=== PATIENT | female | born 1995 | race Hispanic/Latino ===

== ENCOUNTER 2019-09-06 11:49 | Outpatient (CLI) | payer OTHER, SELFPAY ==
--- NOTE | ~2019-09-06 | US_ITS ---
US breast RT limited 09/06/2019 13:01 Indication: Right breast lump. Patient states the lump has expressed pus in the past. Procedure: High-resolution ultrasound of the right breast Comparison: No prior studies for comparison. Findings: In the area of palpable concern at 8:00, 5 cm from the nipple, there is an elliptical shape d complicated fluid collection with parallel orientation, peripheral vascularity with posterior acous tic enhancement measuring 1.6 x 1.2 x 0.4 cm. Impression: 1: Complicated superficially located fluid collection at 8:00, 5 cm from the nipple measuring 1.6 x 1 .2 x 0.4 cm which may represent a complicated sebaceous cyst or small abscess. Recommend appropriate therapy with follow-up ultrasound in 3 months to assess for resolution. BI-RADS CATEGORY 3-PROBABLY BENIGN FINDING Reviewed, dictated and finalized at location A. Impression: 1: Complicated superficially located fluid collection at 8:00, 5 cm from the ni pple measuring 1.6 x 1.2 x 0.4 cm which may represent a complicated sebaceous c yst or small abscess. Recommend appropriate therapy with follow-up ultrasound i n 3 months to assess for resolution. BI-RADS CATEGORY 3-PROBABLY BENIGN FINDING
== END 2019-09-06 11:50 | disposition home or self-care (01) ==
PROVIDERS: Visit Provider Surgery Plastic and Reconstructive Surgery
DX: N63.10 Unspecified lump in the right breast, unspecified quadrant (principal); R92.8 Other abnormal and inconclusive findings on diagnostic imaging of breast
CPT/HCPCS: 76642

== ENCOUNTER 2020-01-27 14:24 | Emergency (ER) | payer SELFPAY ==
[2020-01-27 14:28] VITALS: BP 149/83; PULSE 80; RESP 18; TEMP 36.2; O2SAT 99
--- NOTE | 2020-01-27 15:06 | ED.EAR ---
HPI - Ear Problem General Chief complaint: Ear Stated complaint: right ear pain Time Seen by Provider: 01/27/20 14:42 Source: patient Mode of arrival: ambulatory Limitations: no limitations History of Present Illness HPI Narrative: This is a 24 year old female that present to the ER for right ear pain x 1 week. Reports swelling and pain in the ear. Denies fever or drainage. Related Data Allergies Allergy/AdvReac Type Severity Reaction Status Date / Time No Known Allergies Allergy Verified 10/09/19 07:37 Review of Systems Review of Systems: Narrative: CONSTITUTIONAL: Denies fever ENT: Reports otalgia. All systems reviewed & are unremarkable except as noted in HPI and below PMFSH Past Medical History Medical History (Updated 01/27/20 @ 15:23 by Luna Royal PA-C) Ovarian torsion Skin abscess Surgical History Surgical History Hx of cholecystectomy Social History Social History Smoking status: Former smoker Gender identity (if verbalized by the patient): Female Exam Narrative: Exam Narrative: GENERAL: Well-appearing, well-nourished, and in no acute distress. HEAD: Normocephalic, atraumatic. EYES: EOMI. ENT: Nares clear, no rhinorrhea or epistaxis. Mucous membranes moist. Oropharynx without tonsillar hypertrophy exudate or other lesions. Bilateral TMs pearly luong non-bulging. Right external auditory canal with moderate edema and redness. No mastoid tenderness or swelling NECK: Supple. No adenopathy or masses. EXTREMITIES: Normal range of motion. No edema. SKIN: Warm, dry, no rash. NEURO: No focal deficits. Alert and oriented x3. PSYCH: Normal mood and affect Course Vital Signs Vital signs: Vital Signs Temperature 97.2 F L 01/27/20 14:28 Pulse Rate 80 01/27/20 14:28 Respiratory Rate 18 01/27/20 14:28 Blood Pressure 149/83 H 01/27/20 14:28 Pulse Oximetry 99 01/27/20 14:28 Temperature 97.2 F L 01/27/20 14:28 Pulse Rate 80 01/27/20 14:28 Respiratory Rate 18 01/27/20 14:28 Blood Pressure 149/83 H 01/27/20 14:28 Pulse Oximetry 99 01/27/20 14:28 Medical Decision Making MDM Narrative Medical decision making narrative: Patient presents the emergency department for right ear pain x1 week. Exam is consistent with otitis externa. She is afebrile and nontoxic-appearing. Given first dose of otic antibiotic in the ED. Will be started on antibiotics and is to follow-up with primary care doctor. She was given warnings to return to the ER Vital Signs Vital Signs: Vital Signs Temperature 97.2 F L 01/27/20 14:28 Pulse Rate 80 01/27/20 14:28 Respiratory Rate 18 01/27/20 14:28 Blood Pressure 149/83 H 01/27/20 14:28 Pulse Oximetry 99 01/27/20 14:28 Temperature 97.2 F L 01/27/20 14:28 Pulse Rate 80 01/27/20 14:28 Respiratory Rate 18 01/27/20 14:28 Blood Pressure 149/83 H 01/27/20 14:28 Pulse Oximetry 99 01/27/20 14:28 Critical Care Time Critical Care Time Critical Care Time: No Discharge Plan Discharge Clinical Impression: Otitis externa Qualifiers: Otitis externa type: diffuse Chronicity: acute Laterality: right Qualified Code(s): H60.311 - Diffuse otitis externa, right ear Patient Disposition: Home, Self-Care Condition: Stable Instructions: Antibiotic Form, Otitis Externa (ED) Additional Instructions: Return to the emergency department if you experience fever, increasing redness and swelling of your ear, or any other symptoms that are concerning to you Apply 3 drops into your right ear twice daily for the next 7 days Follow-up with primary care doctor Prescriptions: No Action hydrocodone-acetaminophen [Lamar] 5-325 mg tablet 1 tablet PO Q6H PRN (Reason: pain) Qty: 15 RF: 0 cephalexin [Keflex] 500 mg capsule 500 mg PO TID Qty: 21 RF: 0 Follow-up/Referrals: Gabino Leiva MD [y
[2020-01-27] MEDS: CIPROFLOXACIN HC OTIC 10 ML 3 DROP RIGHT EAR (15:08)
--- NOTE | 2020-01-27 15:08 | PC.NURSE ---
patient on stretcher. drops to right ear as ordered.
== END 2020-01-27 15:32 | disposition home or self-care (01) ==
PROVIDERS: Emergency Provider Emergency Medicine
DX: H60.311 Diffuse otitis externa, right ear (principal); Z87.891 Personal history of nicotine dependence
CPT/HCPCS: 99283; A9270

== ENCOUNTER 2020-06-11 18:38 | Emergency (ER) | payer SELFPAY ==
[2020-06-11 18:40] VITALS: BP 144/85; PULSE 86; RESP 16; TEMP 36.4; O2SAT 100
--- NOTE | 2020-06-11 19:17 | ED.ABDPAIN ---
HPI - Abdominal Pain General Chief Complaint: Abdominal Pain Stated Complaint: abd cramping, poss preg Time Seen by Provider: 06/11/20 19:12 Source: patient Mode of arrival: ambulatory Limitations: no limitations History of Present Illness HPI narrative: Patient is 24 years old female presents with lower abdominal cramps that started last night mainly on the left side with vaginal spotting. Last menstrual period April 11, 2020. Patient reports positive test 4 days ago. Patient denies any fever, chills, nausea, vomiting, urinary symptoms. Related Data Allergies Allergy/AdvReac Type Severity Reaction Status Date / Time No Known Allergies Allergy Verified 06/11/20 18:50 Review of Systems Review of Systems: Narrative: CONSTITUTIONAL: Denies fever, chills, or sweats. EYES: Denies visual changes, redness, or discharge. ENT: Denies rhinorrhea, congestion, sore throat, or otalgia. CARDIOVASCULAR: Denies chest pain, palpitations, or edema. RESPIRATORY: Denies cough or dyspnea. GASTROINTESTINAL: Denies abdominal pain, nausea, vomiting, or diarrhea. GENITOURINARY: Denies dysuria or hematuria. SKIN: Denies rash or itching. MUSCULOSKELETAL: Denies back pain, joint pain, or myalgia. NEUROLOGIC: Denies headache, numbness, or weakness. PSYCHIATRIC: Denies anxiety or depression. [facility] Past Medical History Medical History (Updated 06/11/20 @ 21:41 by Kaelyn Bradford MD) Ovarian torsion Skin abscess Surgical History Surgical History Hx of cholecystectomy Social History Social History Smoking status: Former smoker Gender identity (if verbalized by the patient): Female Exam Narrative: Exam Narrative: General appearance: Well-developed, well-nourished Skin: Normal color Head: Normocephalic, nontraumatic Eyes: Clear conjunctiva ENT: Oropharynx normal, ears normal, nose normal Neck: Supple, nontender Chest and respiratory: Airway patent, no respiratory distress, no accessory muscle use Heart: Regular rate/rhythm Abdomen: Soft, nontender, no organomegaly, quiet bowel sounds Vascular: Normal peripheral pulses, normal capillary refill. Musculoskeletal: Normal range of motion, nontender back Neurologic: Alert and oriented ?3, [employer] is normal as tested, no gross motor deficit Course Course Emergency Course: -year-old female stable Reevaluation(s) Reevaluation #1: Patient is feeling okay, denying any symptoms at this time, declined pelvic exam after negative test. Date: 06/11/20 Time: 21:41 Vital Signs Vital signs: Vital Signs Temperature 36.4 C L 06/11/20 18:40 Pulse Rate 86 06/11/20 18:40 Respiratory Rate 16 06/11/20 18:40 Blood Pressure 144/85 H 06/11/20 18:40 Pulse Oximetry 100 06/11/20 18:40 Temperature 36.4 C L 06/11/20 18:40 Pulse Rate 95 06/11/20 19:42 Respiratory Rate 16 06/11/20 19:42 Blood Pressure 148/90 H 06/11/20 19:42 Pulse Oximetry 98 06/11/20 19:42 MDM - Abdominal Pain MDM Narrative Medical decision making narrative: related symptoms versus anxiety/stress related symptoms. test ordered. Further plan to follow Differential Diagnosis Differential diagnosis: Likely abdominal pain, constipation and other ( related symptoms, miscarriage) Lab Data Result diagrams: 06/11/20 19:29 Labs: Lab Results 06/11/20 06/11/20 06/11/20 Range/Units 19:28 19:29 19:29 WBC 12.9 H (4.5-10.0) K/mm3 RBC 4.96 (4.2-5.4) M/mm3 Hgb 14.2 (12.0-15.0) g/dL Hct 43.8 (37.0-47.0) % MCV 88.3 (80-100) fl MCH 28.6 (26-34) p
[2020-06-11 19:37] LABS: Basophils Absolute Auto 0.1 K/mm3 (0.0-0.1); Basophils Percent Auto 0.5 % (0.2-1.2); Eosinophils Absolute Auto 0.2 K/mm3 (0-0.3); Eosinophils Percent Auto 1.7 % (0-4.4); Hematocrit 43.8 % (37.0-47.0); Hemoglobin 14.2 g/dL (12.0-15.0); Immature Granulocyte Absolute 0.06 K/mm3 (0.00-0.031); Immature Granulocyte Percent A 0.5 % (0-0.5); Lymphocytes Absolute Auto 3.32 K/mm3 (0.9-3.2); Lymphocytes Percent Auto 25.7 % (18.3-44.2); Mean Corpuscular HGB Conc 32.4 g/dl (32-36); Mean Corpuscular Hemoglobin 28.6 pg (26-34); Mean Corpuscular Volume 88.3 fl (80-100); Mean Platelet Volume 9.8 fl (7.4-10.4); Monocytes Percent Auto 7.4 % (2.6-8.5); Neutrophils Absolute Auto 8.3 K/mm3 (1.3-6.7); Neutrophils Percent Auto 64.2 % (45.5-73.1); Platelet Count Result 452 k/mm3 (150-375); Red Blood Count 4.96 M/mm3 (4.2-5.4); Red Cell Distribution Width 13.3 % (11.5-14.5); White Blood Count 12.9 K/mm3 (4.5-10.0)
[2020-06-11 19:40] VITALS: BP 142/82; PULSE 94
[2020-06-11 19:41] VITALS: BP 148/101; BP 148/90; PULSE 93; PULSE 95
[2020-06-11 19:42] VITALS: BP 148/90; PULSE 95; RESP 16; O2SAT 98
[2020-06-11 20:04] LABS: Beta HCG Quantitative < 2.39 mIU/ML
[2020-06-11 22:02] VITALS: BP 154/77; PULSE 88; RESP 20; O2SAT 100
== END 2020-06-11 22:02 | disposition home or self-care (01) ==
PROVIDERS: Physician Assistant; Emergency Provider Emergency Medicine
DX: N93.8 Other specified abnormal uterine and vaginal bleeding (principal); Z87.891 Personal history of nicotine dependence
CPT/HCPCS: 36415; 81025; 84702; 85025; 85461; 99284

== ENCOUNTER 2020-10-14 12:30 | Emergency (ER) | payer SELFPAY ==
--- NOTE | ~2020-10-14 | US_ITS ---
EXAMINATION: US soft tissue head and neck DATE: 10/14/2020 17:19 INDICATION: Left posterior neck mass. TECHNIQUE: Multiple grayscale and Doppler ultrasound images of the neck were obtained. COMPARISON: None FINDINGS: There is a 17 x 12 x 16 mm hypoechoic subcutaneous mass in the left posterior neck with tra ct to the skin. IMPRESSION: 1. 17 mm subcutaneous mass in left posterior neck, most likely a sebaceous cyst. Reviewed, dictated and finalized at location A. IMPRESSION: 1. 17 mm subcutaneous mass in left posterior neck, most likely a sebaceous cyst .
[2020-10-14 13:01] VITALS: BP 128/84; PULSE 77; RESP 20; TEMP 36.8; O2SAT 100
[2020-10-14 15:09] VITALS: BP 138/90; PULSE 67; RESP 20; TEMP 36.6; O2SAT 100
[2020-10-14] MEDS: ACETAMINOPHEN 500 MG TABLET 1000 MG PO (16:58)
--- NOTE | 2020-10-14 17:02 | ED.WOUNDLAC ---
HPI - Wound/Laceration General Chief Complaint: Wound/Laceration Stated Complaint: BOIL ON NECK Time Seen by Provider: 10/14/20 16:16 Source: patient Mode of arrival: ambulatory Limitations: no limitations History of Present Illness HPI narrative: This is a 25 year old female that presents to the ER for a cyst on her neck present over the last week. Reports the area is painful. Denies fever, cough, sore throat, erythema, or abnormal drainage. Related Data Home Medications Medication Instructions Recorded Confirmed No Home Medications 10/14/20 10/14/20 Allergies Allergy/AdvReac Type Severity Reaction Status Date / Time No Known Allergies Allergy Verified 10/14/20 15:09 Review of Systems Review of Systems: CONSTITUTIONAL: Denies fever ENT: Denies sore throat RESPIRATORY: Denies cough All systems reviewed & are unremarkable except as noted in HPI and below PMFSH Past Medical History Medical History (Updated 10/14/20 @ 17:41 by Luna Royal PA-C) Ovarian torsion Skin abscess Surgical History Surgical History Hx of cholecystectomy Social History Social History Smoking status: Former smoker Gender identity (if verbalized by the patient): Female Exam Narrative: GENERAL: Well-appearing, well-nourished, and in no acute distress. HEAD: Normocephalic, atraumatic. EYES: EOMI. ENT: Nares clear, no rhinorrhea or epistaxis. Mucous membranes moist. Oropharynx without tonsillar hypertrophy exudate or other lesions. NECK: Supple. Left posterior cervical lymph node vs cyst (2cm) that is mobile, tender to palpation in the area. No overlying erythema or warmth CHEST: Clear to auscultation. No respiratory distress. No wheezes rales or rhonchi HEART: Regular rate and rhythm. No murmur heard. Normal peripheral pulses. EXTREMITIES: Normal range of motion. No edema. SKIN: Warm, dry, no rash. NEURO: No focal deficits. Alert and oriented x3. PSYCH: Normal mood and affect Course Vital Signs Vital signs: Vital Signs Temperature 98.3 F 10/14/20 13:01 Pulse Rate 77 10/14/20 13:01 Respiratory Rate 20 10/14/20 13:01 Blood Pressure 128/84 10/14/20 13:01 Pulse Oximetry 100 10/14/20 13:01 Temperature 97.9 F 10/14/20 15:09 Pulse Rate 67 10/14/20 15:09 Respiratory Rate 20 10/14/20 15:09 Blood Pressure 138/90 10/14/20 15:09 Pulse Oximetry 100 10/14/20 15:09 MDM - Wound/Laceration MDM Narrative Medical decision making narrative: Patient presents to the emergency department for a cyst present on the back of the neck. There is no erythema or warmth to suggest infection. Patient is afebrile and nontoxic-appearing. We did perform ultrasound of the area which showed a 17 mm subcutaneous mass in the left posterior neck, most likely a sebaceous cyst. Patient was updated on case findings. She will be given plastics for follow-up. She was given warnings to return to the ER Imaging Data Radiologist's impression: ITS Impressions Head/Neck Ultrasound 10/14/20 17:20 IMPRESSION: 1. 17 mm subcutaneous mass in left posterior neck, most likely a sebaceous cyst. Critical Care Time Critical Care Time Critical Care Time: No Discharge Plan Discharge Clinical Impression: Epidermal inclusion cyst Patient Disposition: Home, Self-Care Condition: Stable Instructions: Epidermal Inclusion Cysts (ED) Additional Instructions: Return to the emergency department if you experience fever, redness and swelling of your cyst, abnormal drainage from the area, or any other symptoms that are concerning to you Tylenol or ibuprofen as needed for discomfort Follow-up with plastic surgery Prescriptions: No Action No Home Medications RF: 0 Follow-up/Referrals: Andry Wilson MD [Physician] - Antoine Tate MD [Physician] - PHYSICIAN,[employer] [Primary C
[2020-10-14 17:55] VITALS: BP 128/76; PULSE 70; RESP 18; O2SAT 100
== END 2020-10-14 17:55 | disposition home or self-care (01) ==
PROVIDERS: Emergency Provider Emergency Medicine
DX: L72.0 Epidermal cyst (principal); Z87.891 Personal history of nicotine dependence
CPT/HCPCS: 76536; 99284; A9270

== ENCOUNTER 2020-11-13 09:00 | Emergency (ER) | payer SELFPAY ==
[2020-11-13 09:05] VITALS: BP 131/97; PULSE 77; RESP 14; TEMP 36.6; O2SAT 98
[2020-11-13 09:08] VITALS: BP 131/91; PULSE 77; RESP 14; TEMP 36.6; O2SAT 98
--- NOTE | 2020-11-13 09:17 | ED.SKABFB ---
HPI - Skin/Abscess/Foreign Bdy General Chief complaint: Skin/Abscess/Foreign Body Stated complaint: boil on neck Time Seen by Provider: 11/13/20 09:08 Source: patient Mode of arrival: ambulatory Limitations: no limitations History of Present Illness HPI narrative: This is a 25-year-old female that presents to the emergency department for cyst on her neck. I actually evaluated her for this about a month ago. Had an ultrasound that showed an epidermal inclusion cyst. I gave her follow-up with plastics, which she has not done yet. Now recently the cyst has become a little more painful. There is some redness to the area. She is also getting some drainage from the area. Denies fevers. Related Data Allergies Allergy/AdvReac Type Severity Reaction Status Date / Time No Known Allergies Allergy Verified 10/14/20 15:09 Review of Systems Review of Systems: CONSTITUTIONAL: Denies fever SKIN: Reports cyst All systems reviewed & are unremarkable except as noted in HPI and below PMFSH Past Medical History Medical History (Updated 11/13/20 @ 11:24 by Luna Royal PA-C) Ovarian torsion Skin abscess Surgical History Surgical History Hx of cholecystectomy Social History Social History Smoking status: Former smoker Gender identity (if verbalized by the patient): Female Exam Narrative: GENERAL: Well-appearing, well-nourished, and in no acute distress. HEAD: Normocephalic, atraumatic. EYES: EOMI. NECK: Supple. Left posterior neck with 4cm soft cystic area. CHEST: No respiratory distress. HEART: Regular rate EXTREMITIES: Normal range of motion. No edema. SKIN: Warm, dry, no rash. NEURO: No focal deficits. Alert and oriented x3. PSYCH: Normal mood and affect Course Vital Signs Vital signs: Vital Signs Temperature 97.9 F 11/13/20 09:05 Pulse Rate 77 11/13/20 09:05 Respiratory Rate 14 11/13/20 09:05 Blood Pressure 131/97 H 11/13/20 09:05 Pulse Oximetry 98 11/13/20 09:05 Temperature 97.9 F 11/13/20 09:08 Pulse Rate 77 11/13/20 09:08 Respiratory Rate 14 11/13/20 09:08 Blood Pressure 131/91 H 11/13/20 09:08 Pulse Oximetry 98 11/13/20 09:08 MDM - Skin/Abscess/Foreign Bdy MDM Narrative Medical decision making narrative: Patient presents to the emergency department for a cyst on the back of her neck. I did evaluate patient for this 1 month ago. Her ultrasound of the area that shows a sebaceous cyst. Patient was instructed to follow-up with plastics for removal of this. She did not follow-up with plastics and now the cyst has become a little bit larger and painful. There is very mild redness of the area. It does not overtly appear infected at this time. I do not feel as though it needs incision and drainage today. I will start her on antibiotic until she is able to get into see plastic surgery for removal. She was given warnings to return to the ER Critical Care Time Critical Care Time Critical Care Time: No Discharge Plan Discharge Clinical Impression: Epidermal inclusion cyst Patient Disposition: Home, Self-Care Condition: Stable Instructions: Antibiotic Form, Cyst (ED) Additional Instructions: Return if symptoms worsen or concerns: any increase in redness, swelling, pain, or fever over 101 Take antibiotics as directed. Warm compresses 3 times a day for 30 minutes each Follow up with plastic surgery. Call today to make an appointment Prescriptions: New cephalexin 500 mg capsule 500 mg PO Q6H 7 Days Qty: 28 RF: 0 Follow-up/Referrals: Andry Wilson MD [Physician] - 2 Days Antoine Tate MD [Physician] - 2 Days PHYSICIAN,CNA CAREGIVER [Primary Care Provider] -
[2020-11-13 11:53] VITALS: BP 124/79; PULSE 59; RESP 18; O2SAT 100
== END 2020-11-13 11:55 | disposition home or self-care (01) ==
PROVIDERS: Emergency Provider Emergency Medicine
DX: L72.0 Epidermal cyst (principal); Z87.891 Personal history of nicotine dependence
CPT/HCPCS: 99283

== ENCOUNTER 2022-07-27 15:20 | Emergency (ER) | payer SELFPAY ==
[2022-07-27 15:22] VITALS: BP 148/91; PULSE 82; RESP 13; TEMP 36.6; O2SAT 100
--- NOTE | 2022-07-27 16:14 | ED.GENADULT ---
HPI - General Adult General Chief complaint: Eye Problems Stated complaint: eye/neck Time Seen by Provider: 07/27/22 15:57 History of Present Illness HPI narrative: Patient is a 26-year-old female who presents ER with 2 complaints. First complaint is a firm nodule to her right upper eyelid. Is been present for several weeks. It waxes and wanes in its size. There is been no drainage. She has tried warm compresses and topical medication without improvement. Reports sometimes it is swollen in the morning obstructs her vision but has no issues at this time. Patient has history of cyst formation in her axillae, groin, and neck chronically. Patient also reports that she has had some increase in size of the cyst to the posterior aspect of her neck. There is been no drainage there. She has not seen a surgeon for possible removal. She does not have a PCP. She is on no immunologic therapy. Related Data Allergies Allergy/AdvReac Type Severity Reaction Status Date / Time No Known Allergies Allergy Verified 10/14/20 15:09 Review of Systems Constitutional: Constitutional: Denies chills and Denies fever(s) Eyes: Eyes: Denies change in vision and Denies photophobia Comments: Swelling right upper eyelid. Integumentary/Breasts: Skin/Breast: Denies pruritus, Denies erythema and Denies rash Comments: Tender cyst. [facility] Past Medical History Medical History (Updated 07/27/22 @ 16:27 by Edilberto Petit MD) Hidradenitis Ovarian torsion Skin abscess Surgical History Surgical History Hx of cholecystectomy Social History Social History Smoking status: Former smoker Gender identity (if verbalized by the patient): Female Exam Narrative: GENERAL: Well-appearing, well-nourished, and in no acute distress. HEAD: Normocephalic, atraumatic. EYES: PERRL and EOMI. firm nodular cyst right upper eyelid, no involvement with the hair follicles and eyelid eversion does not show any site of possible drainage. ENT: Mucous membranes moist. NECK: Supple. Firm cyst to the neck bilaterally posteriorly, no erythema, no fluctuance or areas of drainage. Scars noted from previous incision and drainage. HEART: Regular rate and rhythm. Normal peripheral pulses. EXTREMITIES: Normal range of motion. No edema. NEURO: Alert and oriented x3. PSYCH: Normal mood and affect. Course Course Emergency Course: Patient resting comfortably. Discussed that patient says should be seen by ophthalmology may need ophthalmologic plastic surgery to remove it. Also discussed she should see general surgery in relation to her chronic cyst on her neck. None of them are erythematous or indurated. We will treat with oral antibiotics and anti-inflammatories. Vital Signs Vital signs: Vital Signs Temperature 97.8 F 07/27/22 15:22 Pulse Rate 82 07/27/22 15:22 Respiratory Rate 13 07/27/22 15:22 Blood Pressure 148/91 H 07/27/22 15:22 Pulse Oximetry 100 07/27/22 15:22 Oxygen Delivery Room Air 07/27/22 15:22 Temperature 97.8 F 07/27/22 15:22 Pulse Rate 82 07/27/22 15:22 Respiratory Rate 13 07/27/22 15:22 Blood Pressure 148/91 H 07/27/22 15:22 Pulse Oximetry 100 07/27/22 15:22 Oxygen Delivery Room Air 07/27/22 15:22 Medical Decision Making Vital Signs Vital Signs: Vital Signs Temperature 97.8 F 07/27/22 15:22 Pulse Rate 82 07/27/22 15:22 Respiratory Rate 13 07/27/22 15:22 Blood Pressure 148/91 H 07/27/22 15:22 Pulse Oximetry 100 07/27/22 15:22 Oxygen Delivery Room Air 07/27/22 15:22 Temperature 97.8 F 07/27/22 15:22 Pulse Rate 82 07/27/22 15:22 Respiratory Rate 13 07/27/22 15:22 Blood Pressure 148/91 H 07/27/22 15:22 Pulse Oximetry 100 07/27/22 15:22 Oxygen Delivery Room Air 07/27/22 15:22 Discharge Plan Discharge Clinical Impression: Cyst o
== END 2022-07-27 16:36 | disposition home or self-care (01) ==
PROVIDERS: Emergency Provider Emergency Medicine; PCP Emergency Medicine
DX: H02.821 Cysts of right upper eyelid (principal); L73.2 Hidradenitis suppurativa; Z87.891 Personal history of nicotine dependence
CPT/HCPCS: 99283

== ENCOUNTER 2024-06-07 07:34 | Emergency (ER) | payer OTHER, SELFPAY ==
--- OUTSIDE RECORDS SUMMARY | 2024-06-07 07:36 | XMS_ITS | Clinical Summary ---
Author Organization [facility] Address [address] [place] [id number] Care Team Providers Care Instructional Design Technologist Name Role Phone Unavailable Primary Care Provider Unavailabl e Social History Tobacco Use Types Packs/Day Years Used Date Smoking Tobacco: Never Assessed Comments Unknown Sex and Gender Information Value Date Recorded Sex Assigned at Not on file Legal Sex Female 8:10 AM CDT Gender Identity Not on file Sexual Orientation Not on file Plan of Treatment Upcoming Encounters Date Type Department Care Team (Late st Contact Info) Description 06/23/2024 1:00 PM CDT Appointment [facility] Ultrasound [address] [place] [address] Diana Pack, [facility] [address] [id number] Health Maintenance Due Date Last Done Comments Cervical Cancer Screening Pa p Smear (Age 21 to 29) Every 3 Years 1996 Cervical Cancer Screening 1996 Annual Physical 09/10/1999 Hepatitis C 2014 DTaP, Tdap and Td Vaccines ( 1 - Tdap) 09/10/2015 Hepatitis B Vaccines (1 of 3 - 19+ 3-dose series) 09/10/2015 COVID-19 Vaccine (2023-2 5 season) 2023 HPV Vaccines Aged Out No longer eligi ble based on patient's age to complete this topic Meningococcal B Vaccine Aged Out No l onger eligible based on patient's age to complete this topic Meningococcal Vaccine Aged Out No halley radha eligible based on patient's age to complete this topic Pneumococcal Vaccine: Pediat rics (0 to 5 Years) and At-Risk Patients (6 to 49 Years) Aged Out No longer eligible b ased on patient's age to complete this topic RSV Immunizations Under 20 Months Aged Out No longer eligible based on patient's age to complete this topic Insurance [facility]
[2024-06-07 07:37] VITALS: BP 140/88; PULSE 62; RESP 16; TEMP 36.8; O2SAT 99
--- OUTSIDE RECORDS SUMMARY | 2024-06-07 07:37 | XMS_ITS | Clinical Summary ---
Author Organization [facility] [employer] Address [address] [place] [address] Care Team Providers Care Modeling Agency Manager Name Role Phone Micah Sandhu MD Primary Care Provider [phone] Source Comments [facility],non-owned Affiliates and Associated Physician Practices is amultiple site organization consisting of ambulatory clinics and hospital sitesin [place], [place], [place] and [place]. This disclosure is being madepursuant to the Care Everywhere program and may not contain all information available regarding this patient. Last updated 17.[facility] [employer] Allergies No known active allergies Medications * This document contains information received from the source organization and may not represent a complete record from that organization. * Be aware that medications may not be up to date on this document. Alwaysverify current medications with the patient. desogestrel-eth inyl estradiol (ORTHO-CEPT, 28,) 0.15-30 MG-MCG tabletIndicatio ns:Polycystic Ovary Syndrome Take 1 Tab by mouth once daily Reasons: Polycystic Ovary Syndrome 1 Packet 5 6 Active Cholecalciferol 12686 UNITSIndication s:Hypovitaminos is D Take by mouth every 7 days 4 Cap 2 6 Active ibuprofen (MOTRIN) 600 MG tablet Take 1 Tab by mouth every 6 hours as needed for Pain 20 Tab 0 6 Active clindamycin (CLEOCIN) 1 % gel Apply to affected area 2 times daily 75 mL 1 6 Active Active Problems Patient Care Coordination No te Formatting of this note migh t be different from the original. Patient's Cell #: [phone] Problem Noted Date Diagnosed Date Abdominal pain, generalized 10/02/2014 S/P cholecystectomy 09/30/2014 Cholecystitis 09/28/2014 Hirsutism 05/01/2014 PCOS (polycystic ovarian syndrome) 10/03/2013 Routine screening for STI (sexually transmitted infection) 10/02/2013 Resolved Problems Problem Noted Date Diagnosed Date Resolved Date Menses, irregular 04/03/2013 05/01/2014 Family History Medical History Relation Name Comments Hypercholesterolemia Maternal Grandfather Hypertension Maternal Grandfather Diabetes Maternal Grandmother Relation Name Status Comments Maternal Grandfather Maternal Grandmother Social History Tobacco Use Types Packs/Day Years Used Date Smoking Tobacco: Never Smokeless Tobacco: Never Alcohol Use Standard Drinks/Week Comments No 0 (1 standard drink = 0.6 oz pur e alcohol) Comments No Sex and Gender Information Value Date Recorded Sex Assigned at Not on file Legal Sex Female 9:03 AM [employer] Gender Identity Not on file Sexual Orientation Not on file Last Filed Vital Signs Vital Sign Reading Time Taken Comments Blood Pressure 108/69 05/19/2015 11:50 PM CDT Pulse 80 05/19/2015 11:50 PM CDT Temperature 36.8 C (98.2 F) 05/19/2015 11:50 PM CDT Respiratory Rate 20 05/19/2015 11:50 PM CDT Oxygen Saturation 97% 10/02/2014 1:12 AM CDT Inhaled Oxygen Concentration 100% 09/28/2014 4 :10 PM CDT Weight 80.1 kg (176 lb 9.4 oz) 05/19/2015 9:59 P M CDT Height 162.6 cm (5' 4.02 ) 05/07/2015 1:20 PM CD T Body Mass Index 30.3 05/07/2015 1:20 PM CDT Plan of Treatment Health Maintenance Due Date Last Done Comments PAP SMEAR 1996 HIV SCREENING 09/10/2011 HEPATITIS C SCREENING 09/05/2014 DTAP/TDAP/TD VACCINES (1 - Tdap) 09/10/2015 HEPATITIS B VACCINE (1 of 3 - 19+ 3-dose series) 09/10/2015 COVID-19 VACCINE (2023-2 5 season) 2023 DEPRESSION SCREENING 02/16/2024 INFLUENZA VACCINE (Season Ended) 2024 ZOSTER VACCINE (1 of 2) 2046 HIB VACCINE Aged Out No longer eligi ble based on patient's age to complete this topic HPV VACCINE Aged Out No longer eligi ble based on patient's age to complete this topic MENINGOCOCCAL (Group B) VACC INE SHARED DECISION-MAKING Aged Out No longer eligibl e based on patient's age to complete this topic MENINGOCOCCAL GROUPS A/C/Y/W VACCINE Aged Out No longer eligible b ased on patient's age to complete this topic PNEUMOCOCCAL VACCINE Aged Out No long er eligible based on patient's age to complete this topic Advance Directives * Full Code (Latest Code Status on File) Date Activated Date Inactivated Comments 10/02/2014 4:41 AM 10/02/2014 1:16 PM * Full Code Date Activated Date Inactivated Comments 09/28/2014 5:40 PM 09/30/2014 5:44 PM * Full Code Date Activated Date Inactivated Comments 09/27/2014 3:55 PM 09/28/2014 5:40 PM Care Teams Modeling Agency Manager Relationship Specialty Start Date End Date Micah Sandhu MD [address] [place] [address] [address] [place] [address] PCP - General Family Medicine 02/22/13
--- OUTSIDE RECORDS SUMMARY | 2024-06-07 07:37 | XMS_ITS | Data Portability ---
Author Organization NOREEN MERRITTJeanette Mccauley Address [address] [place] [address] Assessment No assessment recorded. Plan of Treatment Reminders Order Date Submit Date Provider Last Modified By Organization Details Last Modified Time Details Appointments ANY 15 2024 09:30A M DIANA PACK NP Not available Not available Not available NEW PATIE NT 60 2024 02:00P M YADIRA MCCRAY LCSW Not available Not available Not available NEW PATIE NT 30 2024 10:00A M Eros Brooke MD Not available Not available Not available NEW PATIE NT 30 2024 01:00P M Juliano Hanson MD Not available Not available Not available Lab TSH, ultra -sens itive , serum 2024 025 [facility], [address] [facility] [address], [address], [place], [address], 05/30/2024 03:38:32 CBC w/ auto diff 2024 025 [facility], [address], [address], [place], [address], 05/30/2024 03:38:34 RPR (rapi d plasm a reagi n), serum 2024 025 [facility], [address], [address], [place], [address], 05/30/2024 03:38:35 HIV 1 + 2, meani ngful use set 2024 025 [facility], [address] [facility] [address], [address], [place], [address], 05/30/2024 03:38:37 vagin al patho gens panel , RUDY+p robe, vagin al fluid 2024 025 [facility], [address] [facility] [address], [address], [place], [address], 05/27/2024 10:24:54 hepat itis panel (A+B+ C), acute , serum 2024 025 [facility], [address] [facility] [address], [address], [place], [address], 05/30/2024 03:38:27 HCG, intac t + beta subun it, quant , serum or plasm a 2024 025 [facility], [address] [facility] [address], [address], [place], [address], 05/30/2024 03:38:32 estra diol, serum 2024 025 [facility], [address], [address], [place], [address], 05/30/2024 03:38:33 lh + FSH, serum 2024 025 [facility], [address] [facility] [address], [address], [place], [address], 05/30/2024 03:38:36 testo stero ne, free + total , serum 2024 025 [facility], [address] [facility] [address], [address], [place], [address], 05/30/2024 03:38:25 iron + total iron- denzel ng capac ity (TIBC ), serum 2024 025 [facility], [address] [facility] [address], [address], [place], [address], 05/30/2024 03:38:29 HbA1c (hemo globi n A1c), blood 2024 025 [facility], [address] [facility] [address], [address], [place], [address], 05/30/2024 03:38:31 urina lysis compl ete, refle x cultu re 2024 025 [facility], [address] [place] [address], [address], [place], [address], 05/30/2024 03:38:28 CT + NG + TV, DNA, urine /swab 2018 019 [facility], [address] [place] [address], [address], [place], [address], 03/18/2018 07:16:51 lh + FSH, serum 2018 019 [facility] (Centralized Electronic Ordering - All Locations), Patient Can Go To The Location Of Their Choice, 03/18/2018 07:16:51 dhea- sulfa te, serum 2018 019 [facility] (Centralized [facility] Ordering - All Locations), Patient Can Go To The Location Of Their Choice, 03/18/2018 07:16:53 testo stero ne, total , serum 2018 019 [facility] (Centralized [facility] Ordering - All Locations), Patient Can Go To The Location Of Their Choice, 03/18/2018 07:16:53 HbA1c (hemo globi n A1c), blood 2018 019 [facility], [address], [address], [place], [address], 03/18/2018 07:16:52 CMP, serum or plasm a 2018 019 [facility] (Centralized Electronic Ordering - All Locations), Patient Can Go To The Location Of Their Choice, [id number] 03/18/2018 07:16:50 lipid panel , serum 2018 019 [facility] (Centralized Electronic Ordering - All Locations), Patient Can Go To The Location Of Their Choice, [id number] 03/18/2018 07:16:50 TSH, ultra -sens itive , serum 2018 019 [facility], [address] [facility], [facility] [address], [place], [address], 03/18/2018 07:16:54 pregn cinthia test, urine 2018 019 tia In-Office Order, Internal Use Only DO Not Attach Compendium DO Not Attach Compendium, Do Not Delete/merge, [id number] 03/16/2018 16:02:37 urina lysis , dipst ick 2018 019 [facility] In-Office Order, Internal Use Only DO Not Attach Compendium DO Not Attach Compendium, Do Not Delete/merge, [id number] 03/16/2018 16:02:37 proge stero ne, serum - Day 21 proge stero ne next menst rual cycle 2018 019 [facility], [address], [address], [place], [address], 03/16/2018 16:45:10 semen heather sis 2018 019 [facility], [address], [address], [place], [address], 03/16/2018 15:48:[address] refer ral 2024 025 zoila Brooke MD, [address], [address], [place], [address], 05/26/2024 14:43:37 alistair ic couns elor refer ral 2024 025 [facility], [address] [facility] [address], [place], [address], 05/30/2024 10:25:18 derma tolog ist refer ral 2024 025 [facility] Stacia Adams MD (Dermatology) , [address] [facility] , [facility] [place], [address], 05/25/2024 11:15:24 plast ic surge on refer ral - Pleas e call patie nt to sched ule appt. Thank you 2017 018 ginaelsonjeffy Not available 03/16/2018 15:12:04 Procedures None recor ded. Surgeries None recor ded. Imaging US, neck, soft tissu e 2024 025 [facility] Centralized Scheduling, Centralized Scheduling, [address] [facility] , [place], [address], 05/26/2024 11:45:22 US, pelvi s, trans abdom inal + trans vagin al [address] [facility] Scheduling, [address], [place], [address], 05/30/2024 16:20:31 XR, hyste alpesh shreyago gram 2018 019 [facility] [[email or web address] (One Call Scheduling), [address] [place], [address], 07/04/2018 16:49:16 Medication Orders escit alopr am 10 mg table t 2024 025 [facility], [address] [place] [address], [address], 05/25/2024 10:46:58 Bactr im DS 800 mg-16 0 mg table t 2024 025 [facility], [address] [place] [address], [id number], 05/25/2024 10:46:59 Annov era 0.15 mg-0. 013 mg/24 hr vagin al ring 2019 [facility], [address], [id number], 05/25/2024 09:56:20 multi vitam in table t 2019 020 [facility], [address] [place] [address], [id number], 05/25/2024 09:56:27 Calci um with Vitam in D 600 mg-10 mcg (400 unit) table t 2019 020 [facility] [address], [address] [place] [address], [id number], 05/25/2024 09:56:23 metfo rmin 1,000 mg table t 2018 019 [facility] [address], [address] [place] [address], [address], 10/26/2019 16:29:48 letro zole 2.5 mg table t 2018 019 [facility] [address], [address] [place] [address], [id number], 10/26/2019 16:29:45 calci um 600 mg (as carbo [place]) -kyra min D3 20 mcg (800 unit) table t 2018 019 [facility] [address], [address] [place] [address], [id number], 10/26/2019 16:29:40 multi vitam in table t 2018 019 [facility], [address] [place], [address], 05/25/2024 09:56:27 Patient TargetsNo targets recorded. Patient Instructions Encounter Date Encounter Id Patient Instructions Last Modified By Organization Details Last Modified Time 05/25/2024 [id number] A healthy lifestyle: care instructions [email or web address] Not available 05/25/2024 10:46:52 Reason for Referral Plastic Surgeon Referral for Furunculosis of skin AND/OR subcutaneous tissue Please call patient to schedule appt. Thank you Referring Physician: Candy Oneal [facility], Encounter Date: 01/05/2018 Psychiatrist Referral for De pression screening Referring Physician: Diana Pack [facility], Encounter Date: 05/25/2024 Concrete Gun Operator Referral for M ass of skin Referring Physician: Diana Pack [facility], Encounter Date: 05/25/2024 Genetic Counselor Referral f or Family history of breast cancer Referring Physician: Diana Pack [facility], Encounter Date: 05/25/2024 Results Created Date Observation Date Name Description Value Unit Range Abnormal Flag Note LastModifiedBy Organization Detail LastModifiedTime 03/16/1903/16/2018 urina lysis , dipst ick Leukocytes Negati ve Not Available In-Office Order Internal Use Only DO Not Attach Compendium DO Not Attach Compendium, Do Not Delete/merge, [id number] 03/16/2018 15:23:03/16/1903/16/2018 urina lysis , dipst ick Nitrite negati ve Not Available In-Office Order Internal Use Only DO Not Attach Compendium DO Not Attach Compendium, Do Not Delete/merge, [id number] 03/16/2018 15:23:01 03/16/1903/16/2018 urina lysis , dipst ick Urobilinogen .2 Not Available In-Of fice Order Internal Use Only DO Not Attach Compendium DO Not Attach Compendium, Do Not Delete/merge, [id number] 03/16/2018 15:23:03/16/1903/16/2018 urina lysis , dipst ick Protein Negati ve Not Available In-Office Order Internal Use Only DO Not Attach Compendium DO Not Attach Compendium, Do Not Delete/merge, [id number] 03/16/2018 15:23:03/16/1903/16/2018 urina lysis , dipst ick pH 7.0 Not Available In-Office Order Internal Use Only DO Not Attach Compendium DO Not Attach Compendium, Do Not Delete/merge, [id number] 03/16/2018 15:23:03/16/1903/16/2018 urina lysis , dipst ick Blood Negati ve Not Available In-Office Order Internal Use Only DO Not Attach Compendium DO Not Attach Compendium, Do Not Delete/merge, 03/16/2018 15:23:03/16/1903/16/2018 urina lysis , dipst ick Specific Tyner 1.020 Not Available In-Off ice Order Internal Use Only DO Not Attach Compendium DO Not Attach Compendium, Do Not Delete/merge, 03/16/2018 15:23:03/16/1903/16/2018 urina lysis , dipst ick Ketone Negati ve Not Available In-Office Order Internal Use Only DO Not Attach Compendium DO Not Attach Compendium, Do Not Delete/merge, [id number] 03/16/2018 15:23:01 03/16/1903/16/2018 urina lysis , dipst ick Bilirubin Negati ve Not Available In-Office Order Internal Use Only DO Not Attach Compendium DO Not Attach Compendium, Do Not Delete/merge, [id number] 03/16/2018 15:23:03/16/1903/16/2018 urina lysis , dipst ick Glucose Negati ve Not Available In-Office Order Internal Use Only DO Not Attach Compendium DO Not Attach Compendium, Do Not Delete/merge, [id number] 03/16/2018 15:23:01 03/16/1903/16/2018 pregn cinthia test, urine HCG negati ve Not Available In-Office Order Internal Use Only DO Not Attach Compendium DO Not Attach Compendium, Do Not Delete/merge, [id number] 03/16/2018 15:19:39 03/16/1903/17/2018 CMP, serum or plasm a glucose 88 mg/dL 65-99 Not Available [facility] ([facility]) [address] [place], [address], 03/18/2018 07:16:50 03/16/1903/17/2018 CMP, serum or plasm a BUN 8 mg/dL 6-20 Not Available [facility] ([facility]) [address] [place], [address], 03/18/2018 07:16:50 03/16/1903/17/2018 CMP, serum or plasm a creatinine 0.53 mg/dL 0.57-1 .00 below low normal Not Available [facility] ([facility]) [address] [place], [address], 03/18/2018 07:16:50 03/16/1903/17/2018 CMP, serum or plasm a eGFR if nonafricn AM 136 mL/mi n/1.7 3 >59 Not Available [facility] ([facility]) [address] [place], [address], 03/18/2018 07:16:50 03/16/1903/17/2018 CMP, serum or plasm a eGFR if africn AM 157 mL/mi n/1.7 3 >59 Not Available [facility] ([facility]) [address] [place], [address], 03/18/2018 07:16:50 03/16/1903/17/2018 CMP, serum or plasm a BUN/creatini ne ratio 15 9-23 Not Available [facility] ([facility]) [address] [place], [address], 03/18/2018 07:16:50 03/16/1903/17/2018 CMP, serum or plasm a sodium 139 mmol/ L 134-14 4 Not Available [facility] ([facility]) [address] [facility], [address], 03/18/2018 07:16:50 03/16/1903/17/2018 CMP, serum or plasm a potassium 4.5 mmol/ L 3.5-5. 2 Not Available [facility] ([facility]) [address] [facility], [address], 03/18/2018 07:16:50 03/16/1903/17/2018 CMP, serum or plasm a chloride 100 mmol/ L 96-106 Not Available [facility] ([facility]) [address] [facility], [address], 03/18/2018 07:16:50 03/16/1903/17/2018 CMP, serum or plasm a carbon dioxide, total 26 mmol/ L 20-29 Not Available [facility] ([facility]) [address] [facility], [address], 03/18/2018 07:16:50 03/16/1903/17/2018 CMP, serum or plasm a calcium 9.5 mg/dL 8.7-10 .2 Not Available [facility] ([facility]) [address] [facility], [address], 03/18/2018 07:16:50 03/16/1903/17/2018 CMP, serum or plasm a protein, total 7.3 g/dL 6.0-8. 5 Not Available [facility] ([facility]) [address] [facility], [address], 03/18/2018 07:16:50 03/16/1903/17/2018 CMP, serum or plasm a albumin 4.8 g/dL 3.5-5. 5 Not Available [facility] ([facility]) [address] [facility], [address], 03/18/2018 07:16:50 03/16/19 19 03/17/2018 CMP, serum or plasm a globulin, total 2.5 g/dL 1.5-4. 5 Not Available [facility] ([facility]) [address] [facility], [address], 03/18/2018 07:16:50 03/16/1903/17/2018 CMP, serum or plasm a A/G ratio 1.9 1.2-2. 2 Not Available [facility] ([facility]) [address] [facility], [address], 03/18/2018 07:16:50 03/16/1903/17/2018 CMP, serum or plasm a bilirubin, total 0.5 mg/dL 0.0-1. 2 Not Available [facility] ([facility]) [address] [facility], [address], 03/18/2018 07:16:50 03/16/1903/17/2018 CMP, serum or plasm a alkaline phosphatase 70 IU/L 39-117 Not Available [facility]) [address] [facility], [address], 03/18/2018 07:16:50 03/16/1903/17/2018 CMP, serum or plasm a AST (SGOT) 30 IU/L 0-40 Not Available [facility] ([facility]) [address] [facility], [address], 03/18/2018 07:16:50 03/16/1903/17/2018 CMP, serum or plasm a ALT (SGPT) 64 IU/L 0-32 above high normal Not Available [facility] ([facility]) [address] [facility], [address], 03/18/2018 07:16:50 03/16/1903/17/2018 lipid panel , serum cholesterol, total 177 mg/dL 100-19 9 Not Available [facility] ([facility]) [address], [place], [address], 03/18/2018 07:16:50 03/16/1903/17/2018 lipid panel , serum triglyceride s 93 mg/dL 0-149 Not Available [facility] ([facility]) [address], [place], [address], 03/18/2018 07:16:50 03/16/1903/17/2018 lipid panel , serum HDL cholesterol 43 mg/dL >39 Not Available [facility] ([facility]) [address] [place], [address], 03/18/2018 07:16:50 03/16/1903/17/2018 lipid panel , serum VLDL cholesterol jaylyn 19 mg/dL 5-40 Not Available [facility] ([facility]) [address] [facility], [place], [address], 03/18/2018 07:16:50 03/16/1903/17/2018 lipid panel , serum LDL cholesterol calc 115 mg/dL 0-99 above high normal Not Available [facility] ([facility]) [address] [place], [address], 03/18/2018 07:16:50 03/16/1903/17/2018 lipid panel , serum comment: 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 2 LDL/H DL Ratio Men Women 1/2 Avg.R isk 1.0 1.5 Avg.R isk 3.6 3.2 2X Avg.R isk 6.2 5.0 3X Avg.R isk 8.0 6.1 Not Available [facility] ([facility]) [address], [place], [address], 03/18/2018 07:16:50 03/16/1903/18/2018 CT + NG + TV, DNA, urine /swab chlamydia by RUDY NEGATI VE negati ve Not Available [facility] ([facility]) [address] [place], [address], 03/18/2018 07:16:51 03/16/1903/18/2018 CT + NG + TV, DNA, urine /swab gonococcus by RUDY NEGATI VE negati ve Not Available [facility] ([facility]) [address] [place], [address], 03/18/2018 07:16:51 03/16/1903/18/2018 CT + NG + TV, DNA, urine /swab trich vag by RUDY NEGATI VE negati ve Not Available [facility] ([facility]) [address] [place], [address], 03/18/2018 07:16:51 03/16/1903/17/2018 lh + FSH, serum LH 15.1 mIU/m L Adult Femal e: Folli cular phase 2.4 - 12.6 Ovula tion phase 14.0 - 95.6 Lutea l phase 1.0 - 11.4 Postm enopa usal 7.7 - 58.5 Not Available [facility] ([facility]) [address] [place], [address], 03/18/2018 07:16:51 03/16/1903/17/2018 lh + FSH, serum FSH 4.9 mIU/m L Adult Femal e: Folli cular phase 3.5 - 12.5 Ovula tion phase 4.7 - 21.5 Lutea l phase 1.7 - 7.7 Postm enopa usal 25.8 - 134.8 Not Available [facility] ([facility]) [address] [place], [address], 03/18/2018 07:16:51 03/16/1903/17/2018 HbA1c (hemo globi n A1c), blood hemoglobin A1C 5.2 % 4.8-5. 6 Predi abete s: 5.7 - 6.4 Diabe ellen: >6.4 Glyce celestina contr ol for adult s with diabe ellen: <7.0 Not Available [facility] ([facility]) [address] [place], [address], 03/18/2018 07:16:52 03/16/1903/17/2018 dhea- sulfa te, serum DHEA-sulfate 309.8 ug/dL 110.0- 431.7 Not Available [facility] ([facility]) [address] [place], [address], 03/18/2018 07:16:52 03/16/1903/17/2018 testo stero ne, total , serum testosterone , serum 119 NG/dL 8-48 above high normal Not Available [facility] ([facility]) [address] [place], [address], 03/18/2018 07:16:53 03/16/1903/17/2018 TSH, ultra -sens itive , serum TSH 1.810 uIU/m L 0.450- 4.500 Not Available [facility] ([facility]) [address] [place], [address], 03/18/2018 07:16:54 05/26/1905/26/2024 NUSWA B VAGIN ITIS PLUS (VG+) atopobium vaginae HIGH - 2 score abnormal Not Available [facility] ([facility]) [address] [place], [address], 05/27/2024 10:24:53 05/26/1905/26/2024 NUSWA B VAGIN ITIS PLUS (VG+) bvab 2 HIGH - 2 score abnormal Not Available [facility] ([facility]) [address] [place], [address], 05/27/2024 10:24:53 05/26/19 25 05/26/2024 NUSWA B VAGIN ITIS PLUS (VG+) megasphaera 1 HIGH - 2 score abnormal Calcu late total score by toya arellano the 3 indiv idual bacte rial vagin osis (BV) marke r score s toget her. Total score is inter prete d as follo ws: Total score 0-1: Indic ates the absen ce of BV. Total score 2: Indet ermin ate for BV. Addit ional clini jaylyn data shoul d be evalu ated to estab mandy a diagn osis. Total score 3-6: Indic ates the prese nce of BV. Not Available [facility] ([facility]) [address] [place], [address], 05/27/2024 10:24:53 05/26/19 25 05/26/2024 NUSWA B VAGIN ITIS PLUS (VG+) perry albicans, RUDY NEGATI VE negati ve Not Available [facility] ([facility]) [address] [place], [address], 05/27/2024 10:24:53 05/26/19 25 05/26/2024 NUSWA B VAGIN ITIS PLUS (VG+) perry glabrata, RUDY NEGATI VE negati ve Not Available [facility] ([facility]) [address] [place], [address], 05/27/2024 10:24:53 05/26/19 25 05/27/2024 NUSWA B VAGIN ITIS PLUS (VG+) trich vag by RUDY NEGATI VE negati ve Not Available [facility] ([facility]) [address] [place], [address], 05/27/2024 10:24:53 05/26/19 25 05/27/2024 NUSWA B VAGIN ITIS PLUS (VG+) chlamydia trachomatis, RUDY NEGATI VE negati ve Not Available [facility] ([facility]) [address] [facility], [place], [address], 05/27/2024 10:24:53 05/26/1905/27/2024 NUSWA B VAGIN ITIS PLUS (VG+) neisseria gonorrhoeae, RUDY NEGATI VE negati ve Not Available [facility] ([facility]) [address] [facility], [place], [address], 05/27/2024 10:24:53 05/26/19 25 05/26/2024 TESTO STERO NE,FR EE AND TOTAL testosterone 58 NG/dL - Freda ified by repea t heather sis Not Available [facility] ([facility]) [address] [facility], [place], [address], 05/30/2024 03:38:25 05/26/19 25 05/30/2024 TESTO STERO NE,FR EE AND TOTAL free testosterone (direct) 1.9 pg/mL 0.0-4. 2 Not Available [facility] ([facility]) [address] [facility], [place], [address], 05/30/2024 03:38:25 05/26/19 25 05/26/2024 ACUTE HEPAT ITIS hep A Ab, IgM NEGATI VE negati ve A negat eligio anti- HAV IgM resul t sugge sts no recen t or curre nt HAV infec tion. Not Available [facility] ([facility]) [address] [facility], [place], [address], 05/30/2024 03:38:27 05/26/19 25 05/26/2024 ACUTE HEPAT ITIS HBsAg screen NEGATI VE negati ve Not Available [facility] ([facility]) [address] [facility], [place], [address], 05/30/2024 03:38:27 05/26/19 25 05/26/2024 ACUTE HEPAT ITIS hep B core Ab, IgM NEGATI VE negati ve Not Available [facility] ([facility]) [address] [facility], [place], [address], 05/30/2024 03:38:27 05/26/19 25 05/26/2024 ACUTE HEPAT ITIS HCV Ab NON REACTI VE nonrea ctive Not Available [facility] ([facility]) [address] [facility], [place], [address], 05/30/2024 03:38:27 05/26/19 25 05/26/2024 INTER PRETA TION: interpretati on: Commen t Not infec zac with HCV unles s early or acute infec tion is suspe cted (whic h may be delay ed in an immun ocomp romis ed indiv idual ), or other evide nce exist s to indic ate HCV infec tion. Not Available [facility] ([facility]) [address] [facility], [place], [address], 05/30/2024 03:38:28 05/26/19 25 05/26/2024 UA WITH CULTU RE REFLE X specific gravity 1.026 1.005- 1.030 Not Available [facility] ([facility]) [address] [facility], [place], [address], 05/30/2024 03:38:28 05/26/19 25 05/26/2024 UA WITH CULTU RE REFLE X pH 8.0 5.0-7. 5 above high normal Not Available [facility] ([facility]) [address] [facility], [place], [address], 05/30/2024 03:38:28 05/26/19 25 05/26/2024 UA WITH CULTU RE REFLE X urine-color YELLOW yellow Not Available [facility] ([facility]) [address] [facility], [place], [address], 05/30/2024 03:38:28 05/26/19 25 05/26/2024 UA WITH CULTU RE REFLE X appearance CLEAR clear Not Available [facility] ([facility]) [address] [facility], [place], [address], 05/30/2024 03:38:28 05/26/19 25 05/26/2024 UA WITH CULTU RE REFLE X WBC esterase NEGATI VE negati ve Not Available [facility] ([facility]) [address] [facility], [place], [address], 05/30/2024 03:38:28 05/26/19 25 05/26/2024 UA WITH CULTU RE REFLE X protein TRACE negati ve/tra ce Not Available [facility] ([facility]) [address] [facility], [place], [address], 05/30/2024 03:38:28 05/26/19 25 05/26/2024 UA WITH CULTU RE REFLE X glucose NEGATI VE negati ve Not Available [facility] ([facility]) [address] [facility], [place], [address], 05/30/2024 03:38:28 05/26/19 25 05/26/2024 UA WITH CULTU RE REFLE X ketones NEGATI VE negati ve Not Available [facility] ([facility]) [address] [facility], [place], [address], 05/30/2024 03:38:28 05/26/19 25 05/26/2024 UA WITH CULTU RE REFLE X occult blood NEGATI VE negati ve Not Available [facility] ([facility]) [address] [facility], [place], [address], 05/30/2024 03:38:28 05/26/19 25 05/26/2024 UA WITH CULTU RE REFLE X bilirubin NEGATI VE negati ve Not Available [facility] ([facility]) [address] [facility], [place], [address], 05/30/2024 03:38:28 05/26/19 25 05/26/2024 UA WITH CULTU RE REFLE X urobilinogen ,semi-qn 1.0 mg/dL 0.2-1. 0 Not Available [facility] ([facility]) [address] [place], [address], 05/30/2024 03:38:28 05/26/19 25 05/26/2024 UA WITH CULTU RE REFLE X nitrite, urine NEGATI VE negati ve Not Available [facility] ([facility]) [address] [place], [address], 05/30/2024 03:38:28 05/26/19 25 05/26/2024 UA WITH CULTU RE REFLE X microscopic examination COMMEN T Micro scopi c not indic ated and not perfo rmed. Not Available [facility] ([facility]) [address] [place], [address], 05/30/2024 03:38:28 05/26/19 25 05/26/2024 UA WITH CULTU RE REFLE X urinalysis reflex COMMEN T This speci men will not refle x to a Urine Cultu re. Not Available [facility] ([facility]) [address] [place], [address], 05/30/2024 03:38:28 05/26/19 25 05/26/2024 IRON AND TIBC iron bind.cap.(TI BC) 349 ug/dL 250-45 0 Not Available [facility] ([facility]) [address] [place], [address], 05/30/2024 03:38:29 05/26/19 25 05/26/2024 IRON AND TIBC UIBC 252 ug/dL 131-42 5 Not Available [facility] ([facility]) [address] [place], [address], 05/30/2024 03:38:29 05/26/19 25 05/26/2024 IRON AND TIBC iron 97 ug/dL 27-159 Not Available [facility] ([facility]) [address] [place], [address], 05/30/2024 03:38:29 05/26/1905/26/2024 IRON AND TIBC iron saturation 28 % 15-55 Not Available [facility] ([facility]) [address] [place], [address], 05/30/2024 03:38:29 05/26/1905/26/2024 HEMOG LOBIN A1C hemoglobin A1C 5.2 % 4.8-5. 6 Predi abete s: 5.7 - 6.4 Diabe ellen: >6.4 Glyce celestina contr ol for adult s with diabe ellen: <7.0 Not Available [facility] ([facility]) [address] [facility], [place], [address], 05/30/2024 03:38:30 05/26/1905/26/2024 TSH TSH 1.430 uIU/m L 0.450- 4.500 Not Available [facility] ([facility]) [address] [place], [address], 05/30/2024 03:38:31 05/26/1905/26/2024 HCG,B ETA SUBUN IT, QNT HCG,beta subunit,qnt, serum <1 mIU/m L Femal e (Non- pregn ant) 0 - 5 (Post menop ausal ) 0 - 8 Femal e (Preg nant) Weeks of Gesta tion 3 6 - 71 4 10 - 750 5 747 - 5043 6 150 - 03367 7 1506 -6463 63 8 66853 -2514 71 9 54570 -9784 10 10 62761 -7546 77 12 37573 -5968 12 14 74088 - 80797 15 72139 - 95014 16 9714 - 09039 17 2154 - 36133 18 0460 - 52178 Florencio ECLIA metho dolog y Not Available [facility] ([facility]) [address] [place], [address], 05/30/2024 03:38:32 05/26/19 25 05/26/2024 ESTRA DIOL estradiol 85.4 pg/mL Adult Femal e Range Folli cular phase 12.5 - 166.0 Ovula tion phase 85.8 - 498.0 Lutea l phase 43.8 - 211.0 Postm enopa usal <6.0 - 54.7 Pregn cinthia 1st trime ster 215.0 - >4300 .0 Florencio ECLIA metho dolog y Not Available [facility] ([facility]) [address] [place], [address], 05/30/2024 03:38:33 05/26/19 25 05/26/2024 CBC WITH DIFFE RENTI AL/PL ATELE T WBC 6.7 x10e3 /uL 3.4-10 .8 Not Available [facility] ([facility]) [address] [place], [address], 05/30/2024 03:38:34 05/26/19 25 05/26/2024 CBC WITH DIFFE RENTI AL/PL ATELE T RBC 4.94 x10e6 /uL 3.77-5 .28 Not Available [facility] ([facility]) [address] [place], [address], 05/30/2024 03:38:34 05/26/19 25 05/26/2024 CBC WITH DIFFE RENTI AL/PL ATELE T hemoglobin 13.9 g/dL 11.1-1 5.9 Not Available [facility] ([facility]) [address] [place], [address], 05/30/2024 03:38:34 05/26/19 25 05/26/2024 CBC WITH DIFFE RENTI AL/PL ATELE T hematocrit 43.2 % 34.0-4 6.6 Not Available [facility] ([facility]) [address] [place], [address], 05/30/2024 03:38:34 05/26/19 25 05/26/2024 CBC WITH DIFFE RENTI AL/PL ATELE T MCV 87 fL 79-97 Not Available [facility] ([facility]) [address] [facility], [place], [address], 05/30/2024 03:38:34 05/26/19 25 05/26/2024 CBC WITH DIFFE RENTI AL/PL ATELE T MCH 28.1 pg 26.6-3 3.0 Not Available [facility] ([facility]) [address] [facility], [place], [address], 05/30/2024 03:38:34 05/26/19 25 05/26/2024 CBC WITH DIFFE RENTI AL/PL ATELE T MCHC 32.2 g/dL 31.5-3 5.7 Not Available [facility] ([facility]) [address] [facility], [place], [address], 05/30/2024 03:38:34 05/26/19 25 05/26/2024 CBC WITH DIFFE RENTI AL/PL ATELE T RDW 12.5 % 11.7-1 5.4 Not Available [facility] ([facility]) [address] [facility], [place], [address], 05/30/2024 03:38:34 05/26/19 25 05/26/2024 CBC WITH DIFFE RENTI AL/PL ATELE T platelets 384 x10e3 /uL 150-45 0 Not Available [facility] ([facility]) [address] [facility], [place], [address], 05/30/2024 03:38:34 05/26/19 25 05/26/2024 CBC WITH DIFFE RENTI AL/PL ATELE T neutrophils 61 % notest ab. Not Available [facility] ([facility]) [address] [facility], [place], [address], 05/30/2024 03:38:34 05/26/19 25 05/26/2024 CBC WITH DIFFE RENTI AL/PL ATELE T lymphs 29 % notest ab. Not Available [facility] ([facility]) [address] [facility], [place], [address], 05/30/2024 03:38:34 05/26/19 25 05/26/2024 CBC WITH DIFFE RENTI AL/PL ATELE T monocytes 7 % notest ab. Not Available [facility] ([facility]) [address] [facility], [place], [address], 05/30/2024 03:38:34 05/26/19 25 05/26/2024 CBC WITH DIFFE RENTI AL/PL ATELE T eos 2 % notest ab. Not Available [facility] ([facility]) [address] [facility], [place], [address], 05/30/2024 03:38:34 05/26/19 25 05/26/2024 CBC WITH DIFFE RENTI AL/PL ATELE T basos 1 % notest ab. Not Available [facility] ([facility]) [address] [facility], [place], [address], 05/30/2024 03:38:34 05/26/19 25 05/26/2024 CBC WITH DIFFE RENTI AL/PL ATELE T neutrophils (absolute) 4.0 x10e3 /uL 1.4-7. 0 Not Available [facility] ([facility]) [address] [place], [address], 05/30/2024 03:38:34 05/26/19 25 05/26/2024 CBC WITH DIFFE RENTI AL/PL ATELE T lymphs (absolute) 2.0 x10e3 /uL 0.7-3. 1 Not Available [facility] ([facility]) [address] [facility], [place], [address], 05/30/2024 03:38:34 05/26/19 25 05/26/2024 CBC WITH DIFFE RENTI AL/PL ATELE T monocytes(ab solute) 0.5 x10e3 /uL 0.1-0. 9 Not Available [facility] ([facility]) [address] [facility], [place], [address], 05/30/2024 03:38:34 05/26/19 25 05/26/2024 CBC WITH DIFFE RENTI AL/PL ATELE T eos (absolute) 0.2 x10e3 /uL 0.0-0. 4 Not Available [facility] ([facility]) [address] [facility], [place], [address], 05/30/2024 03:38:34 05/26/19 25 05/26/2024 CBC WITH DIFFE RENTI AL/PL ATELE T baso (absolute) 0.1 x10e3 /uL 0.0-0. 2 Not Available [facility] ([facility]) [address] [facility], [place], [address], 05/30/2024 03:38:34 05/26/19 25 05/26/2024 CBC WITH DIFFE RENTI AL/PL ATELE T immature granulocytes 0 % notest ab. Not Available [facility] ([facility]) [address] [facility], [place], [address], 05/30/2024 03:38:34 05/26/19 25 05/26/2024 CBC WITH DIFFE RENTI AL/PL ATELE T immature grans (abs) 0.0 x10e3 /uL 0.0-0. 1 Not Available [facility] ([facility]) [address] [place], [address], 05/30/2024 03:38:34 05/26/19 25 05/26/2024 RPR, RFX QN RPR/C ONFIR M TP RPR NON REACTI VE nonrea ctive Not Available [facility] ([facility]) [address] [place], [address], 05/30/2024 03:38:35 05/26/19 25 05/26/2024 FSH AND LH LH 4.7 mIU/m L Adult Femal e Range Folli cular phase 2.4 - 12.6 Ovula tion phase 14.0 - 95.6 Lutea l phase 1.0 - 11.4 Postm enopa usal 7.7 - 58.5 Not Available [facility] ([facility]) [address] [place], [address], 05/30/2024 03:38:36 05/26/19 25 05/26/2024 FSH AND LH FSH 3.0 mIU/m L Adult Femal e Range Folli cular phase 3.5 - 12.5 Ovula tion phase 4.7 - 21.5 Lutea l phase 1.7 - 7.7 Postm enopa usal 25.8 - 134.8 Not Available [facility] ([facility]) [address] [facility], [place], [address], 05/30/2024 03:38:36 05/26/1905/26/2024 HIV AB/P2 4 AG WITH REFLE X HIV Ab/P24 Ag screen NON REACTI VE nonrea ctive HIV-1 /HIV- 2 antib odies and HIV-1 p24 antig en were NOT detec zac. There is no labor atory evide nce of HIV infec tion. HIV Negat eligio Not Available [facility] ([facility]) [address] [place], [address], 05/30/2024 03:38:37 07/05/19 19 07/04/2018 XR, hyste alpesh pingo gram No observ ation record ed. [facility] Not Available 10/25 17:37:55 07/05/19 19 07/04/2018 XR, hyste alpesh pingo gram No observ ation record ed. [facility] ([facility]) [address] [place], [address], 10/26/2019 17:37:55 Result Notes None recorded. Problems Name Problem SNOMED Code Status Onset Date Resolution Date Notes Provider Name and Address Organization Details Recorded Time Body mass index 30+ - obesity 848064157 Active 2017 Candy Oneal PA-C Attn: Accounting ,[address] [place], [address] , [place] - [facility] 8 09:08:40 Family history of breast cancer 629618573 Active 2017 Candy Oneal PA-C Attn: Accounting ,[address] [place], [address] , [place] [facility] 8 10:14:04 HPV - Human papillom avirus test positive Active 2017 Corey santana, [place] - [facility] 8 16:30:18 Cervicov aginal cytology : Low grade squamous intraepi thelial lesion 538646891 Active 2017 Corey [place], [place] [facility] 8 16:30:34 Furuncul osis of skin AND/OR subcutan eous tissue Active 2017 Candy Oneal PA-C Attn: Accounting ,[address] [place], [address] , [place] [facility] 8 15:23:11 Testoste zeke level above referenc e range 299781641 Active 2018 Corey [place]ant[place], [place] [facility] 9 15:10:03 Metaboli c syndrome X 750487831 Active 2018 Corey [place], [place] [facility] 9 15:10:04 Polycyst ic ovaries Completed 201602/24/2016 Candy Oneal PA-C Attn: Accounting ,[address] [place], [address] , [place] [facility] 7 15:06:27 Contusio n 453147152 Completed 201602/24/2016 left ovary contusio n 2011 Fauzia Erickson [place], [place] [facility] 7 13:29:47 Liver enzymes level above referenc e range 023075320 Active 2016 Candy Oneal PA-C Attn: Accounting ,[address] [facility], [place], [address] , [place] - [facility] 7 10:52:18 Body mass index 25-29 - overweig 841737227 Completed 201605/05/2017 Candy Oneal PA-C Attn: Accounting ,[address] [facility], [place], [address] , [place] [facility] 8 09:08:52 Active or passive immuniza tion Completed 201603/24/2018 Corey santana, [place] - [facility] 9 15:12:16 Acne 29688369 Active 2016 Candy Oneal PA-C Attn: Accounting ,[address] [facility], [place], [address] , [facility] - [facility] 7 11:00:41 Adult health examinat ion Completed 201603/24/2018 Corey santana [place] - [facility] 9 15:12:20 Abscess 331517440 Completed 201603/24/2018 Corey [place], [place] - [facility] 9 15:12:33 Polycyst ic ovaries Active 2016 Candy Oneal PA-C Attn: Accounting ,[address] [place], [address] , [place] [facility] 7 15:06:27 Dysuria 27183562 Completed 201603/24/2018 Corey santana [place] - [facility] 9 15:12:24 Problem Notes None recorded. Procedures Surgical History Date Name Laterality Status Provider Name and Address Organization Details Recorded Time 10/14/19 18 Colposcopy completed Corey SORTO - [facility] 10/13/2017 13:23:37 10/14/19 18 Colposcopy completed JEFFY Hernandes - [facility] 10/13/2017 12:51:32 09/16/19 18 Control Implant Removal completed Jana Joshi [place] - [facility] 09/15/2017 12:41:06 09/16/19 18 Date of Last Pap Smear completed Jana Joshi [place] [facility] 09/15/2017 12:37:32 02/24/19 17 Control Implant Insertion completed Corey Wiggins [place] - [facility] 02/25/2016 15:56:10 02/15/19 15 Gallbladder Surgery completed Fauzia Erickson [place] - [facility] 02/24/2016 13:15:31 02/15/19 12 Laparoscopy completed Fauzia Erickson [place] [facility] 02/24/2016 13:20:15 Imaging Results Imaging Date Name Status LastModified by Organization Details LastModified Time 07/04/2018 XR, hysterosalpingogram completed [email or web address] Information not available 10/26/2019 17:37:55 07/04/2018 XR, hysterosalpingogram completed [facility] ([facility]) [address] [place] [address], [address], 10/26/2019 17:37:55 Procedure Notes None recorded. Medical Equipment None Reported. Allergies No known drug allergies Medications Name Sig Start Date Stop Date Status Note LastModified by Organization Details LastModified Time letrozole 2.5 mg tabs 10/25 completed Not Available Not Available Not Available cephalexi n 500 mg caps 10/25 completed Not Available Not Available Not Available hydroco/a pap tab 5-325mg 10/25 completed Not Available Not Available Not Available multivita min tablet Take 1 tablet every day by oral route. 05/25 completed Not Available Not Available Not Available doxycycli ne hyclate 100 mg capsule 03/16 completed Not Available Not Available Not Available ranitidin e 300 mg tablet 10/25 completed Not Available Not Available Not Available spironola ctone 100 mg tablet Take 1 tablet twice a day by oral route. 10/25 completed Not Available Not Available Not Available benzoyl peroxide 5 % topical gel APPLY TO THE AFFECTED AREA(S) BY TOPICAL ROUTE ONCE DAILY 06/02 completed Not Available Not Available Not Available metronida zole 500 mg tablet TAKE 1 TABLET BY MOUTH EVERY 12 HOURS FOR 7 DAYS active Not Available Not Available No t Available cimetidin e 800 mg tablet Take 1 tablet every day by oral route at bedtime. 10/25 completed Not Available Not Available Not Available tretinoin 0.05 % topical cream APPLY TO THE AFFECTED AREA(S) TOPICALL Y AT BEDTIME 05/05 completed Not Available Not Available Not Available sulfameth oxazole 800 mg-trimet hoprim 160 mg tablet TAKE 1 TABLET BY MOUTH EVERY 12 HOURS FOR 10 DAYS active Not Available Not Available No t Available doxycycli ne monohydra te 100 mg tablet Take 1 tablet twice a day by oral route. 10/01 completed Not Available Not Available Not Available Macrobid 100 mg capsule Take 1 capsule every 12 hours by oral route for 10 days. 10/25 completed Not Available Not Available Not Available clindamyc in 1 % topical gel APPLY A THIN LAYER TO THE AFFECTED AREA(S) BY TOPICAL ROUTE 2 TIMES PER DAY 06/02 completed Not Available Not Available Not Available doxycycli ne monohydra te 100 mg capsule 10/01 completed Not Available Not Available Not Available cephalexi n 500 mg capsule TAKE 1 CAPSULE BY MOUTH THREE TIMES DAILY 05/25 completed Not Available Not Available Not Available simvastat in 20 mg tablet Take 1 tablet every day by oral route. 10/25 completed Not Available Not Available Not Available metformin 1,000 mg tablet Take 1 tablet twice a day by oral route. 10/25 completed Not Available Not Available Not Available nitrofura ntoin macrocrys clare 100 mg capsule Take 1 capsule twice a day by oral route for 5 days. 06/07 completed Not Available Not Available Not Available ibuprofen 600 mg tablet 03/16 completed Not Available Not Available Not Available letrozole 2.5 mg tablet Take 1 tablet by mouth once daiLY DAY 3-7 OF EACH CYCLE 10/25 completed Not Available Not Available Not Available NuvaRing 0.12 mg-0.015 mg/24 hr vaginal Insert 1 vaginal ring every month by vaginal route. 05/25 completed Not Available Not Available Not Available azithromy eliecer 500 mg tablet Take 2 tablets every day by oral route for 1 day. 06/07 completed Not Available Not Available Not Available escitalop isaiah 10 mg tablet TAKE 1 TABLET BY MOUTH ONCE DAILY active Not Available Not Available No t Available cholecalc iferol (vitamin D3) 1,250 mcg (50,000 unit) capsule 05/05 completed Not Available Not Available Not Available Calcium with Vitamin D 600 mg-10 mcg (400 unit) tablet Take 1 tablet twice a day by oral route. 05/25 completed Not Available Not Available Not Available Nexplanon 68 mg subdermal implant Inject 1 implant by subcutan eous route. 09/15 completed Not Available Not Available Not Available calcium 600 mg (as carbonate )-vitamin D3 20 mcg (800 unit) tablet Take 1 tablet twice a day by oral route for 30 days. 10/25 completed Not Available Not Available Not Available Enskyce 0.15 mg-0.03 mg tablet 10/01 completed Not Available Not Available Not Available Contrave 8 mg-90 mg tablet,ex tended release Take 2 tablets twice a day by oral route. 10/01 completed [employer] Not Available Not Available Not Available Annovera 0.15 mg-0.013 mg/24 hr vaginal ring Insert 1 vaginal ring every month by vaginal route. 05/25 completed Not Available Not Available Not Available Vitals Date Recorded Body height Body mass index (BMI) Body weight Oxygen saturation Oxygen saturation in Arterial blood by Pulse oximetry Heart rate Body temperature Systolic blood pressure Diastolic blood pressure Provider Name and Address Organization Details Last Updated DateTime 8 161.29 cm 33.3 kg/m2 13328.5 4 g 98 % 98 % 92 /min 99.3 [degF] 120 mm[Hg] 84 mm[Hg] Fauzia Ken MA [facility] 8 14:39:09 Date Recorded Body height Provider Name an d Address Organization Details Last Updated DateTime 03/16/2018 161.29 cm Fauzia Erickson [place] - [facility] 03/16 14:46:17 Date Recorded Body mass index (BMI) Body weight Systolic blood pressure Diastolic blood pressure Provider Name and Address Organization Details Last Updated DateTime 03/16/2018 33 kg/m2 04012.96 g 128 mm[Hg] 92 mm[Hg] Jana Joshi MA [facility] 03/16/2018 15:16:05 Date Recorded Body weight Body mass index (BMI) Body height Oxygen saturation Oxygen saturation in Arterial blood by Pulse oximetry Heart rate Body temperature Respiratory rate Systolic blood pressure Diastolic blood pressure Provider Name and Address Organization Details Last Updated DateTime 5 51913.6 6 g 30 kg/m2 162.56 cm 99 % 99 % 65 /min 97.5 [degF] 18 /min 125 mm[Hg] 82 mm[Hg] Chani Woodson MA [facility] 5 10:03:51 Social History Question Answer Notes LastModified by Organizat ion Details LastModified Time Tobacco Smoking Status Former Smoker Fauzia Erickson MA [facility], [facility] 02/24/2016 13:12:27 Do You Have An Advance Directive? No [email or web address] Information not available 02/24/2016 What Is Your Level Of Alcohol Consumption? Occasional [email or web address] Information not available 02/24/2016 Is Blood Transfusion Acceptable In An Emergency? Yes Information not available 02/24/2016 What Is Your Level Of Caffeine Consumption? Moderate Daily, Coffee Information not available 02/24/2016 How Much Tobacco Do You Chew? None [email or web address] Information not available 02/24/2016 Are You Currently Employed? Yes Information not available 02/24/2016 What Type Of Diet Are You Following? REGULAR [email or web address] Information not available 02/24/2016 Which Illicit Or Recreational Drugs Have You Used? Denies [email or web address] Information not available 02/24/2016 Do You Or Have You Ever Used E-cigarettes Or Vape? 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 With Others [email or web address] Information not available 02/24/2016 What Was The Date Of Your Most Recent Tobacco Screening? 10/26/2019 Information not available 10/26/2019 How Many Children Do You Have? 0 [email or web address] Information not available 02/24/2016 Performs Monthly Self-breast Exam? Yes [email or web address] Information not available 02/24/2016 Do You Use Protection During Sex? Usually [email or web address] Information not available 02/24/2016 What Is Your Relationship Status? Single [email or web address] Information not available 02/24/2016 Seat Belts Used Routinely Yes [email or web address] Information not available 02/24/2016 Are You Sexually Active? Yes [email or web address] Information not available 02/24/2016 At What Age Did You Start Smoking Tobacco? 17 [email or web address] Information not available 02/24/2016 Do You Or Have You Ever Used Smokeless Tobacco? Never Used Smokeless Tobacco Information not available 10/26/2019 How Much Tobacco Do You Smoke? No 1-2 Cigs A Day [email or web address] Information not available 02/24/2016 General Stress Level High [email or web address] Information not available 02/24/2016 Do You Use Sunscreen Routinely? Yes [email or web address] Information not available 02/24/2016 On What Date Was Tobacco Cessation Counseling Provided? 10/26/2019 Information not available 10/26/2019 How Many Years Have You Smoked Tobacco? 2 Information not available 02/24/2016 Sex: Female Functional Status Question Answer Note LastModified by Organizat ion Details LastModified Time What is your exercise level? Occasional [email or web address] Information not available 02/24/2016 Mental Status None recorded. Family History Relationship Description Onset Age of this Age Resolved Age Notes LastModified by Organization Details LastModified Time Mother Diabetes mellitus [email or web address] Not available 02/23 13:09:11 Mother Hypertensive disorder [email or web address] Not available 02/23 13:09:44 Mother Malignant tumor of breast 47 [email or web address] Not available 2017 09:36:55 Maternal Grandmother Hypertensive disorder [email or web address] Not available 02/23 13:09:44 Maternal Uncle Diabetes mellitus [email or web address] Not available 02/23 13:11:07 Maternal Grandfather Hypertensive disorder [email or web address] Not available 02/23 13:11:42 Maternal Aunt Malignant tumor of breast 60 [email or web address] Not available 2017 09:37:06 Medical History Condition Response Coronary Artery Disease N Kidney Cyst N Blood Diseases N Hyperthyroidism N Blood disorders N Blood Transfusion N MRSA N Emphysema N Blood Clots N COPD N Depression N Pneumonia N Premature N Peripheral Arterial Disease N Edema N TIA N Headaches/Migraines N Anxiety Disorder N Obesity N Infertility N Polyps N Acid Reflux (GERD) N Hematuria N Stroke N Neck Injury N Polio N Hospital Admission other than Y Neurologic Disorder N Other Sleep Disorders N Rheumatoid Arthritis N Fibromyalgia N Abdominal Aortic Aneurysm Repair N Kidney Disease N Heart Conditions N Hospitalizations Y Brain Tumors N Acne N Eating Disorder N Skin Problems N Constipation Y Meningitis N Tuberculosis N Cerebral Palsy N Myocardial Infarction N Asthma N Substance Abuse N Peripheral Vascular Disease N Vertigo N Sleep Disorder N Cirrhosis N Pulmonary Embolism N Chicken Pox N [place] Use Past or Present N Hematologic Disease N Anxiety/Depression N Thyroid Disease N Colon Cancer N Glaucoma N Lung Disease N Developmental or Behavioral Disorders N Bipolar N Pacemaker N Diverticulitis/Diverticulosis N Anesthesia Complications N Orthopedic Problems N Orthotics N Head Injury/Concussion N Congenital Anomalies N Gama Bite N Chronic Kidney Disease N Endometriosis N Liver Disease N Dialysis N Schizophrenia N Speech Delay N Chronic Obstructive Pulmonary Disease N Parkinson's Disease N Thyroid Problems N Developmental Delay N GI Problems N Anemia N Immune System Disorder N Multiple Sclerosis N Colon Polyps N Heart Attack (CO) N Diabetes N Cardiomyopathy N Blood Transfusions N Heart Problems/Murmur N Eye Trauma N Congestive Heart Failure (CHF) N Valvular Heart Disease N Hyperlipidemia N Double Vision N Abuse/Domestic Violence N Hepatitis B N Lupus N Epilepsy/Seizures N Reflux/GERD N Aneurysm N Bronchitis N Heart Disease N Hypertension N Pre-Eclampsia N Heart Failure N Other Y Gout N High Blood Pressure N Atrial Fibrillation N Kidney Stones N Head Trauma/Injury N Congenital Heart Disease N Spine Problems N Gastrointestinal Disease N Lung Mass N Sinusitis N Obstructive Sleep Apnea N Muscle, Joint, or Bone Problems N Autoimmune disease N Vision or Eye Problems Y Arthritis N Blood Clot N Cancer N Seasonal allergies N Leg or Foot Ulcers N Raynaud's Disease N Aortic Aneurysm N Arrhythmia N Headaches N Heart Problems N [place]bl[place]pia N Ear or Hearing Problems N Hyperparathyroidism N Migraines N Artificial Joints N Kidney or Bladder Problems N NSAID Use N Encephalitis N PTSD N Ulcers N Prostate Hypertrophy N Bleeding Disorder N AIDS/HIV N Urinary Tract Infection N Back Problems Y Allergies N Atrial Flutter N GERD/Reflux N Hepatitis N Autism Spectrum Disorder (ASD) N Breast Cancer N Hernia N Hypothyroidism N Breast Problem N Genitourinary Disease N Deep Vein Thrombosis N Varicose Veins N Cystic Fibrosis N Hearing Loss N Developmental Problems N Carotid Disease N Vitamin D Deficiency N Bladder or Kidney Problems N High Cholesterol N [place] N Valvular Abnormalities N Psychiatric/Mental Health Condition N Organ Transplant N Foot Deformity N Allergies/Hayfever N Dyslipidemia N Hyponatremia N Diabetic Eye Disease N Osteoporosis/Osteopenia N Back Pain N Proteinuria N Mental Illness N Neurological Problems N Ovarian Cancer N Bedwetting N Seizures/Epilepsy N Kidney Failure N Ocular trauma N Diverticulitis N Dementia N Sleep Apnea N Mental Problems N Warfarin Management N Osteoporosis N Gynecological History Statement/Question Response Abnormal Pap Y Flow Moderate Date of LMP STIs/STDs N HPV Vaccine N Age at Menarche 10 Current Control Method Seeking Pre gnancy Sexually Active? Y Menses Monthly No Date of Last Pap Smear 09/15/2017 Sexual Problems? Y LMP Unknown Desired Control Method None Obstetrics History GPAL:G 0 P 0 0 0 0 Type Value Multiple Births 0 Full Term 0 Induced 0 Spontaneous 0 Premature 0 Living 0 Ectopics 0 Total 0 Immunizations Vaccine Type Date Status Note Provider Nam e and Address Organization Details Recorded Time COVID-19, mRNA, LNP-S, PF, 30 mcg/0.3 mL dose 1 completed Sofía Beal [place], [place] [facility] 08/29/2020 16:51:21 COVID-19, mRNA, LNP-S, PF, 30 mcg/0.3 mL dose 1 completed Sofía [place] [facility] 08/29/2020 16:51:42 Influenza, split virus, quadrivalent, preservative 7 completed Not Available [facility] 03/04/2019 02:47:57 HPV9 7 completed Not Available [facility] 03/04/2019 02:33:05 Hep A, adult 7 completed Not Available [facility] 03/04/2019 02:33:00 HPV9 7 completed Not Available [facility] 03/04/2019 02:49:12 HPV, unspecified formulation 5 completed Yolis Thacker [place] [facility] 06/02/2016 15:47:12 Hep A, unspecified formulation 7 completed [place]olis Thacker [place] [facility] 06/03/2016 10:57:15 meningococcal ACWY, unspecified formulation 1 completed [place]olis Thacker [place] [facility] 06/02/2016 15:47:49 meningococcal ACWY, unspecified formulation 6 completed [place]olis Thacker [place] [facility] 06/02/2016 15:47:55 varicella 7 completed [place]olis Thacker [place] [facility] 06/02/2016 15:48:08 varicella 5 completed [place]olis Thacker [place] [facility] 06/02/2016 15:48:12 MMR 7 completed [place]olis Thacker [place] [facility] 06/02/2016 15:48:24 MMR 2 completed [place]olis Thacker [place] [facility] 06/02/2016 15:48:27 Hep B, unspecified formulation 7 completed [place]olis Th[place] [facility] 06/02/2016 15:48:46 Hep B, unspecified formulation 7 completed [place]olis [place] [facility] 06/02/2016 15:48:52 Hep B, unspecified formulation 8 completed [place]olis [place] [facility] 06/02/2016 15:48:56 Hib, unspecified formulation 7 completed Yolis [place]acker [place] [facility] 06/02/2016 15:49:14 Hib, unspecified formulation 7 completed [place]olis [place] [facility] 06/02/2016 15:49:19 Hib, unspecified formulation 8 completed Yolis Th[place] [facility] 06/02/2016 15:49:25 Hib, unspecified formulation 8 completed [place]olis [place] [facility] 06/02/2016 15:49:30 polio, unspecified formulation 7 completed Yolis [place]acker [place] [facility] 06/02/2016 15:49:46 polio, unspecified formulation 7 completed [place]FFY [place] [facility] 06/02/2016 15:49:50 polio, unspecified formulation 8 completed Yolis Kirstie[place] [facility] 06/02/2016 15:49:54 polio, unspecified formulation 2 completed [place] [facility] 06/02/2016 15:50:06 Tdap 6 completed Yolis Thacker [place] [facility] 06/02/2016 15:50:32 influenza, unspecified formulation 7 completed Yolis [place]FFY [place] [facility] 06/02/2016 15:50:59 DTaP, unspecified formulation 7 completed Yolis Thacker [place] [facility] 06/02/2016 15:51:24 DTaP, unspecified formulation 7 completed Yolis Kirstie, [place] [facility] 06/02/2016 15:51:30 DTaP, unspecified formulation 8 completed Yolis Kirstie, [place] [facility] 06/02/2016 15:51:33 DTaP, unspecified formulation 8 completed Yolis Thacker [place] [facility] 06/02/2016 15:51:38 DTaP, unspecified formulation 2 completed Yolis Kirstie, [place] [facility] 06/02/2016 15:51:42 Past Encounters Encounter ID Performer Location Encounter Start Date Encounter Closed Date Diagnosis/Indication Diagnosis SNOMED-CT Code Diagnosis ICD10 Code Diagnosis Note [id number] JEFFY Hammond ([facility]) [address] [place] [address] 02/25/2016 14:24:40 02/26/2016 11:11:30 Family planning surveillance 554376932 Z30.09 Insertion of subcutaneous contraceptive 524498930 Z30.9 Polycystic ovaries 25460 008 E28.2 Venereal d isease screening 415757120 Z11.3 [id number] IRIS Kulkarni (Adult Med) [address] [place] [id number] 04/01/2016 09:57:11 04/01/2016 16:51:55 Liver enzymes level above reference range 368893001 R74.8 Pt advised that losing weight is the best way for her to lower liver enzymes.Pt will have LFT's re-evaluat edWill check hepatitis panel and liver US Body mass index 25-29 - overweight 076238372 Z68.29 Advised 30 minutes of exercise 5 days/week Advised to not drink her calories Advised 3 balanced meals/day with plenty of fruits and vegetables Active or passive immunization 607860077 Z23 Acne 27526837 L70.9 WIll initiate doxy BID. RTC 1 monthPt advised to try medication for a month to see how it is working and then f/u to re-address . Adult heal th examination 847145266 Z00.01 20YO female here to establish care. Referred here from OBGYN d/t elevated liver enzymes. [id number] Corey Olmsteadamelia Angulo ([facility]) [address] [place] [phone] 04/27/2016 14:26:15 04/29/2016 15:46:25 Family planning surveillance 892787526 Z30.09 Subcutaneo us contraceptive implant present 841620774 Z97.8 [id number] JEFFY Hammond (Adult Med) [address] [place] [id number] 04/29/2016 16:08:20 04/29/2016 17:45:34 Acne 56830149 L70.9 WIll c/w doxy BID. RTC 1 monthWill add topicals at this timeIn no improvemen t in one month, will refer to derm Abscess 569059975 L02.91 WIll prescribe abx at this timeLikely hydranitis suppurativ a [id number] IRIS Kulkarni (Adult Med) [address] [place] [id number] 06/02/2016 15:52:32 06/02/2016 17:44:45 Acne 76406242 L70.9 WIll c/w doxy BID.Will change to tretinoin creamGiven phone number for dermatolog y at [facility] Active or passive immunization 931875136 Z23 [id number] IRIS Kulkarni (Adult Med) [address] [place] [phone] 07/29/2016 15:39:50 07/30/2016 12:25:37 Active or passive immunization 631760803 Z23 [id number] IRIS Kulkarni (Adult Med) [address] [place] [phone] 0 10/01/2016 14:06:08 10/01/2016 17:58:21 Liver enzymes level above reference range 279648543 R74.8 Pt advised that losing weight is the best way for her to lower liver enzymes.Pt will have LFT's re-evaluat edWill check hepatitis panel and liver US Venereal d isease screening 537942281 Z11.3 Dysuria 63892816 R30.0 Will check UA todayAdvis ed to increase water intakeStay away from sugary drinks Polycystic ovaries 69316 008 E28.2 Acne 41906278 L70.9 c/w change to tretinoin cream Body mass index 25-29 - overweight 982313092 Z68.29 Advised 30 minutes of exercise 5 days/week Advised to not drink her calories Advised 3 balanced meals/day with plenty of fruits and vegetables [id number] IRIS Kulkarni (Adult Med) [address] [place] [phone] 05/05/2017 08:45:12 05/05/2017 12:51:55 Dysuria 46048774 R30.0 Will check UA todayAdvis ed to increase water intakeStay away from sugary drinks Urinary tr act infectious disease 07122764 N39.0 UA positive for UTIAdvised to increase water intakeTake abx as prescribeA zo OTCStay away from sugary drinks Polycystic ovaries 37792 008 E28.2 patient would like to restart metformin at this time Body mass index 30+ - obesity 380350509 Z68.33 Advised 30 minutes of exercise 5 days/week Advised to not drink her calories Advised 3 balanced meals/day with plenty of fruits and vegetables Venereal d isease screening 200110424 Z11.3 [id number] MD Adele Moss (Adult Med) [address] [place] [id number] 0 06/07/2017 09:16:24 06/07/2017 09:45:50 Chlamydial infection 336366495 A74.9 Family his tory of breast cancer 921319177 Z80.3 mother, maternal auntPatien t to let office know the type of breast cancer her mother has and if needed will refer to companion Body mass index 30+ - obesity 256597113 Z68.33 Advised 30 minutes of exercise 5 days/week Advised to not drink her calories Advised 3 balanced meals/day with plenty of fruits and vegetables [id number] Corey Angulo ([facility]) [address] [place] [id number] 0 09/15/2017 11:37:21 09/15/2017 13:47:39 Gynecologic examination 17852936 Z01.419 Exposure t o sexually transmissible disorder 645929476 Z20.2 Removal of subcutaneous contraceptive done 3501143408 10462 Z30.46 Family sj nning surveillance 713591968 Z30.09 [id number] Corey Angulo ([facility]) [address] [place] [address] 10/13/2017 12:08:59 10/13/2017 13:27:00 Cervicovaginal cytology: Low grade squamous intraepithelial lesion 135814222 R87.612 HPV - Lyn n papillomavirus test positive 928753540 R87.619 Exposure t o sexually transmissible disorder 574352511 Z20.2 [id number] IRIS Kulkarni (Adult Med) [address] [place] [id number] 0 01/05/2018 14:30:38 01/05/2018 15:31:53 Furunculosis of skin AND/OR subcutaneous tissue 65632724 L02.92 Patient was directed to go back to the ER because she was not feeling good and she is on abx and recently had boil drainedtem p 99.3 - so not technicall y febrile but based on HPI advised that I would feel more comfortabl e with her being evaluated in the ER because they can check the CBC there and re-drain the abscess - patient v/u and is going directly to [facility] Advised she also needs to contact the plastic surgeon she was referred to - I have also put a referral into Dr. Wilson [id number] Corey Angulo [facility] ([facility]) [address] [place] [id number] 03/16/2018 14:31:39 03/16/2018 18:06:02 Polycystic ovaries 12008206 E28.2 Family sj nning surveillance 923731942 Z30.09 At [facility] risk of sexually transmitted infection 622283281 Z20.2 Evaluation of semen fertility 453734338 N46.9 [id number] Corey Angulo [facility] ([facility]) [address] [place] [id number] 0 10/26/2019 15:37:33 10/26/2019 21:41:46 Family planning surveillance 268285637 Z30.09 [id number] [facility] (Family Med) [address] [place] [address] 05/25/2024 09:39:42 05/29/2024 11:08:05 Obesity 274078607 E66.9 Depression screening 171 399615 Z13.31 Plan of care:-star t SSRI-refer to psychiatry -make appt with counselor- go to ER if SI/HI or worsening of symptoms occur.-fol low up in clinic in one month. Irregular periods 892019 07 N92.6 Plan of care:-make appt with [facility]-ord er labs on patient and will notify of results-or danny US-will notify of results and plan of care Venereal d isease screening 630886129 Z11.3 Plan of care:-obta in labs on patient-ad vised testing with each new partner-ad vised safe sex-provid ed condoms to patient today-pt to follow up at any time for additional STI testing Mass of skin 729931401 R 22.9 Plan of care:-orde r US of neck soft tissue-austin e bactrim x 10 days-refer to dermatolog y Family his tory of breast cancer 303757236 Z80.3 Plan of care:-refe r to genetic counselor- speak with [facility] regarding possible earlier mammogram based on genetic counseling results-cu rrent lifetime breast cancer risk based on screening is 14% Health Concerns Section Related Observation LastModified by Organization Detai ls LastModified Time None Recorded Concern Status LastModified by Organization Details LastModified Time None Recorded Advance Directives Directive N: Payers Encounter Date Sequence Insurance Name Policy Number Policy Ballard Covered Member ID Ballard Member ID Guarantor Name 01/05/[address] [facility] (MEDICAID HMO) [facility] Zo Day [id number] Zo Day 03/16/[address] [facility] (MEDICAID HMO) [facility] [id number] Zo Day 10/26/2019 1 *SELF PAY* In arslan Day 05/25/2024 1 [facility] [id number] Zo Day [id number] Zo Day Notes Date Note Type Note Provider Name and Address Organization Details Recorded Time 01/05/2018 text/html Zo mason ts for Noe ER f/u from 2 days ago when she went to the ER to have boils in her bilateral axilla drained. She states that they have been present for the last week and she gets them on and off and normally they drain on their own; however, on Wednesday they were very large and painful and she needed relief. States that they drained one boil in each axilla, gave her abx (doxy) and referred her to a plastic surgeon. She states that the boil in her right axilla has filled up again and she doesn't feel well. Admits to feeling sick: nauseous, hot, and just feeling fatigued and off. Candy Oneal PA-C Attn: Accounting,[address] [facility], [place], [address], [place] [facility] 01/05/2018 15:23:35 03/16/2018 text/html OB ProblemReport ed bypatient.Associated Symptoms:no abdominal pain; no cramping; no contractions; normal movement; no bleeding; no ROM; no vaginal discharge; no vaginal/vulvar itching or irritation; no dysuria; no frequency; no urgency; no hematuria; no fever; no nausea; no emesis; no constipation; no diarrhea/loose stool; no edema; no visual changes; no headache; no dizziness 22 yo HF here for fertility evaluation. Corey Wiggins max [facility] 03/16/2018 16:36:07 10/26/2019 text/html 24yo f presents phonevisit for BC discussion, possible Nuva ring or annovera Corey Wiggins max, [facility] 10/26/2019 17:41:03 05/25/2024 text/html The patient pres ents to the office to establish care. She stated that she has been depressed. She stated that she has fleeting thoughts that she would be better off but has never acted on these thoughts nor does she have a plan in place to hurt herself. She is not actively suicidal. She is currently living at home with her mom and dad. She is . She quit drinking alcohol. 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 She endorses irregular periods and denies risk. She endorses a mass on the back of her neck that comes and goes and has been present x 1 year. She endorses a familial hx of breast cancer. She stated that her mother has a hx of of breast cancer at the age of 45 and is still living. She denies having had a mammogram or any breast health concerns. She denies additional symptoms or concerns. DIANA PACK NP Attn: Accounting,[address] [facility], [place], [address], [facility] 05/25/2024 10:51:12 OBGyn Episode No OBEpisode recorded.
--- NOTE | 2024-06-07 09:24 | ED.SKABFB ---
HPI - Skin/Abscess/Foreign Bdy General Chief complaint: Allergic Reaction Stated complaint: swelling to top lip Time Seen by Provider: 06/07/24 09:13 Source: patient Mode of arrival: ambulatory Limitations: no limitations History of Present Illness HPI narrative: This is a 28 year old female that presents to the ER for swelling and pain to the upper lip. This started yesterday. Does report recently finishing some antibiotics, otherwise no new exposures, soaps, lotions, medications. Related Data Allergies Allergy/AdvReac Type Severity Reaction Status Date / Time No Known Allergies Allergy Verified 06/07/24 07:39 Review of Systems Review of Systems: CONSTITUTIONAL: Denies fever SKIN: Reports rash All systems reviewed & are unremarkable except as noted in HPI and below PMFSH Past Medical History Medical History (Updated 06/07/24 @ 09:27 by Luna Royal PA-C) Hidradenitis Skin abscess Ovarian torsion Surgical History Surgical History Hx of cholecystectomy Social History Social History Smoking status: Former smoker Gender identity (if verbalized by the patient): Female Exam Narrative: GENERAL: Well-appearing, well-nourished, and in no acute distress. HEAD: Normocephalic, atraumatic. EYES: EOMI. ENT: Nares clear, no rhinorrhea or epistaxis. Mucous membranes moist. Oropharynx without tonsillar hypertrophy exudate or other lesions. Upper lip with mild swelling centrally with a few small pustules noted NECK: Supple. No adenopathy or masses CHEST: No respiratory distress. HEART: Regular rate EXTREMITIES: Normal range of motion. No edema. SKIN: Warm, dry, no rash. NEURO: No focal deficits. Alert and oriented x3. PSYCH: Normal mood and affect Course Vital Signs Vital signs: Vital Signs Temperature 98.2 F 06/07/24 07:37 Pulse Rate 62 06/07/24 07:37 Respiratory Rate 16 06/07/24 07:37 Blood Pressure 140/88 06/07/24 07:37 Pulse Oximetry 99 06/07/24 07:37 Temperature 98.2 F 06/07/24 07:37 Pulse Rate 62 06/07/24 07:37 Respiratory Rate 16 06/07/24 07:37 Blood Pressure 140/88 06/07/24 07:37 Pulse Oximetry 99 06/07/24 07:37 MDM - Skin/Abscess/Foreign Bdy MDM Narrative Medical decision making narrative: Patient presents to the emergency department for swelling of the upper lip. 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 Will be started on Valtrex. She is to follow up with primary provider. She was given warnings to return to the ER Differential Diagnosis Differential diagnosis: Likely abscess of skin or subcutaneous tissue, viral exanthem, urticaria, allergic reaction to drug, insect bites, impetigo and contact dermatitis Critical Care Time Critical Care Time Critical Care Time: No Discharge Plan Discharge Clinical Impression: Cold sore Patient Disposition: Home Condition: Stable Instructions: Oral Herpes Infection (ED) Additional Instructions: Return to the emergency department if you experience fevers, increasing swelling of your lips or mouth, difficulty swallowing, trouble breathing, or any other symptoms that are concerning to you You will take one additional dose of Valacyclovir tonight, this should help you get better faster than you would on your own Follow up with your primary care doctor Patient Language: Lithuanian Prescriptions: New valacyclovir 1 gram tablet 2,000 mg PO DAILY 1 Days Qty: 2 0RF No Action cephalexin 500 mg capsule 500 mg PO Q6H 7 Days Qty: 28 0RF sulfamethoxazole-trimethoprim [Bactrim DS] 800-160 mg tablet 1 tablet PO Q12H Qty: 14 0RF naproxen 375 mg tablet 375 mg PO BID Qty: 14 0RF Follow-up/Referrals: PHYSICIAN NOT ON STAFF,NONSTAFF [Non-Staff] -
[2024-06-07] MEDS: valACYclovir HCL 500 MG TABLET 2000 MG PO (09:35)
[2024-06-07 09:39] VITALS: BP 131/79; PULSE 56; RESP 18; O2SAT 99
--- OUTSIDE RECORDS SUMMARY | 2024-06-07 10:32 | XMS_ITS | Clinical Summary ---
Author Organization [facility] Address [address] [place] [address] Care Team Providers Care Granulator Name Role Phone Unavailable Primary Care Provider [...] Info) Description 06/23/2024 1:00 PM CDT Appointment [facility] Ultrasound [address] [place] [address] Diana Pack, [facility] [address] [address] Health Maintenance Due Date Last [...] patient's age to complete this topic Insurance [facility]
--- OUTSIDE RECORDS SUMMARY | 2024-06-07 10:32 | XMS_ITS | Clinical Summary ---
Author Organization [facility] [employer] Address [address] [place] [address] Care Team Providers Care Brake Holder Name Role Phone Micah Sandhu MD Primary Care Provider [phone] Source Comments [facility],non-owned Affiliates and Associated Physician Practices is amultiple site organization consisting of ambulatory clinics and hospital sitesin [place], [place], [place] and [place]. This disclosure is being madepursuant to the Care Everywhere program and may not contain all information available regarding this patient. Last updated 17.[facility] [employer] Allergies No known active allergies Medications * [...] Syndrome 1 Packet 5 6 Active Cholecalciferol 46848 UNITSIndication s:Hypovitaminos is D Take by mouth [...] different from the original. 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
== END 2024-06-07 09:41 | disposition home or self-care (01) ==
LOC: ANHED 09:31
PROVIDERS: Emergency Provider Physician Assistant; PCP Midwife
DX: B00.1 Herpesviral vesicular dermatitis (principal); Z87.891 Personal history of nicotine dependence
CPT/HCPCS: 99283; A9270